=== PATIENT | male | born 1990 | race Caucasian/White ===

== ENCOUNTER 2017-10-06 16:58 | Emergency (ER) | payer SELFPAY ==
[~2017-10-06 16:58] MED LIST: AZIT-101 PO; CEP500 PO; HYDR-3250 PO; HYDR-3378 PO; IBUP800T37 PO; NEOPT TOP; OXYC-517 PO; PRED20TA6 PO; TRAM-627 PO; TRI05T TP
--- NOTE | 2017-10-06 17:07 | ER Report ---
History and Physical Time Seen By MD: 17:07 HPI/ROS CHIEF COMPLAINT: Suicidal HISTORY OF PRESENT ILLNESS: PT brought in by police for emergency penitentiary. Pt told his love ones that he was going to kill himself. Pt said he was going to obtain an gun and shoot himself. Pt called a friend to see if he could borrow his earlier today but friend said no. Pts girlfriend called police. Pt admitted to police that he was going to kill himself. On ed arrival pt states that he is depressed but that "i really was not going to shoot myself..I was just trying to get people upset". Pt was drinking alcohol today. Pt admits to a long hx of depression. Was hospitalized in [place] for suicide attempt 8 yrs ago. Pt did not tell me what he did at that time. Pt states he has been in [place] for 8 years and has no therapist and feels he is doing better. REVIEW OF SYSTEMS: Constitutional: No fever, no chills. Eyes: No discharge. ENT: No sore throat. Cardiovascular: No chest pain, no palpitations. Respiratory: No cough, no shortness of breath. Gastrointestinal: No abdominal pain, no vomiting. Genitourinary: No hematuria. Musculoskeletal: No back pain. Skin: No rashes. Neurological: No headache. Psych: + depressed, + suicidal with plan Allergies: Coded Allergies: No Known Allergies (Verified Allergy, Mild, 09/04/15) Home Meds No Active Prescriptions or Reported Meds Past Medical/Surgical History Pmhx: depression Pshx: plate in L knee and r hand Hx Smoking: Yes Smoking Status: Current: Every Day Smoker Exposure to Second Hand Smoke?: Yes Hx Substance Use Disorder: Yes (marijuania) Hx Alcohol Use: Yes Constitutional Vital Sign - Last 24 Hours 10/06/17 17:04 Temp 99.2 Pulse 104 Resp 20 B/P (MAP) 147/99 Pulse Ox 95 O2 Delivery Room Air Physical Exam General Appearance: The patient is alert, has no immediate need for airway protection and no signs of toxicity. Eyes: Pupils equal and round no pallor or injection, EOMI, subconjunctival hemorrhage left lateral eye ENT: no pharyngeal erythema or exudates, Mucous membranes are moist, TM are nl b/l, neg hemotympanums Respiratory: There are no retractions, lungs are clear to auscultation. Cardiovascular: Regular rate and rhythm. pulses are equal and symmetrical Gastrointestinal: Abdomen is soft and non tender, no masses, bowel sounds normal, no guarding, no rigidity or rebound Neurological: Cranial nerves II-XII grossly intact, no sensory or motor loss Skin: Warm and dry, no rashes, old yellow ecchymosis on left eye Musculoskeletal: Neck is supple non tender, no vertebral tenderness Extremities are nontender, non swollen and have full range of motion. DIFFERENTIAL DIAGNOSIS: After history and physical exam differential diagnosis was considered for depression, personalilty disorder Medical Decision Making Data Points Result Diagram: 10/06/17 1725 10/06/17 1725 Laboratory Hematology Test 10/06/17 00:00 10/06/17 17:21 10/06/17 17:25 Urine Opiates Screen Negative Urine Barbiturates Screen Negative Ur Tricyclic Antidepressants Screen Negative Urine Phencyclidine Screen Negative Urine Amphetamines Screen Negative Urine Benzodiazepines Screen Negative Urine Cocaine Screen Negative Urine Cannabinoids Screen Negative Urine Color Colorless Urine Clarity Clear Urine pH 6.0 pH (4.8-9.5) Urine Specific Irma 1.003 Urine Protein Negative mg/dL (NEGATIVE) Urine Glucose (UA) Negative mg/dL (NEGATIVE) Urine Ketones Negative mg/dL (NEGATIVE) Urine Blood Negative (NEGATIVE) Urine Nitrite Negative (NEGATIVE) Urine Bilirubin Negative (NEGATIVE) Urine Urobilinogen Negative mg/dL (0.2-1.9) Urine Leukocyte Esterase Negative (NEGATIVE) Urine RBC <1 /HPF (0-2/HPF) Urine WBC <1 /HPF (0-5/HPF) Urine Squamous Epithelial Cells None /LPF (</=FEW) Urine Bacteria Negative /HPF (NONE-FEW) Urine Mucus None /HPF (NONE-FEW) Red Blood Count 5.20 M/uL (4.00-5.60) Mean Corpuscular Volume 93.1 fL (80.0-96.0) Mean Corpuscular Hemoglobin 31.6 pg (26.0-33.0) Mean Corpuscular Hemoglobin Concent 34.0 g/dL (32.0-36.0) Red Cell Distribution Width 13.5 % (11.5-14.5) Mean Platelet Volume 6.8 fL (7.2-11.1) Neutrophils (%) (Auto) 63.4 % (39.4-72.5) Lymphocytes (%) (Auto) 26.5 % (17.6-49.6) Monocytes (%) (Auto) 9.0 % (4.1-12.4) Eosinophils (%) (Auto) 0.7 % (0.4-6.7) Basophils (%) (Auto) 0.4 % (0.3-1.4) Nucleated RBC Relative Count (auto) 0.0 /100WBC Neutrophils # (Auto) 5.3 K/uL (2.0-7.4) Lymphocytes # (Auto) 2.2 K/uL (1.3-3.6) Monocytes # (Auto) 0.8 K/uL (0.3-1.0) Eosinophils # (Auto) 0.1 K/uL (0.0-0.5) Basophils # (Auto) 0.0 K/uL (0.0-0.1) Nucleated RBC Absolute Count (auto) 0.00 K/uL Peripheral Blood Smear No Y/N Sodium Level 142 mmol/L (137-145) Potassium Level 3.9 mmol/L (3.5-5.0) Chloride Level 106 mmol/L (98-107) Carbon Dioxide Level 23 mmol/L (22-30) Blood Urea Nitrogen 15 mg/dl (9-21) Creatinine 0.90 mg/dl (0.66-1.25) Glomerular Filtration Rate Calc > 60.0 Random Glucose 108 mg/dl (75-110) Calcium Level 9.0 mg/dl (8.4-10.2) Magnesium Level 2.0 mg/dl (1.7-2.2) Total Bilirubin 0.4 mg/dl (0.2-1.3) Aspartate Amino Transf (AST/SGOT) 48 U/L (0-35) Alanine Aminotransferase (ALT/SGPT) 39 U/L (0-56) Alkaline Phosphatase 81 U/L (0-126) Total Protein 7.8 gm/dl (6.3-8.2) Albumin 4.6 g/dl (3.5-5.0) Salicylates Level < 10 mg/L Salicylate Last Dose Date unknown Acetaminophen Level < 10 ug/ml Serum Alcohol 267 mg/dl Chemistry Test 10/06/17 00:00 1/22/18 17:21 10/06/17 17:25 Urine Opiates Screen Negative Urine Barbiturates Screen Negative Ur Tricyclic Antidepressants Screen Negative Urine Phencyclidine Screen Negative Urine Amphetamines Screen Negative Urine Benzodiazepines Screen Negative Urine Cocaine Screen Negative Urine Cannabinoids Screen Negative Urine Color Colorless Urine Clarity Clear Urine pH 6.0 pH (4.8-9.5) Urine Specific Irma 1.003 Urine Protein Negative mg/dL (NEGATIVE) Urine Glucose (UA) Negative mg/dL (NEGATIVE) Urine Ketones Negative mg/dL (NEGATIVE) Urine Blood Negative (NEGATIVE) Urine Nitrite Negative (NEGATIVE) Urine Bilirubin Negative (NEGATIVE) Urine Urobilinogen Negative mg/dL (0.2-1.9) Urine Leukocyte Esterase Negative (NEGATIVE) Urine RBC <1 /HPF (0-2/HPF) Urine WBC <1 /HPF (0-5/HPF) Urine Squamous Epithelial Cells None /LPF (</=FEW) Urine Bacteria Negative /HPF (NONE-FEW) Urine Mucus None /HPF (NONE-FEW) White Blood Count 8.4 k/uL (4.5-11.0) Red Blood Count 5.20 M/uL (4.00-5.60) Hemoglobin 16.4 g/dL (14.0-18.0) Hematocrit 48.4 % (42.0-52.0) Mean Corpuscular Volume 93.1 fL (80.0-96.0) Mean Corpuscular Hemoglobin 31.6 pg (26.0-33.0) Mean Corpuscular Hemoglobin Concent 34.0 g/dL (32.0-36.0) Red Cell Distribution Width 13.5 % (11.5-14.5) Platelet Count 306 K/uL (150-450) Mean Platelet Volume 6.8 fL (7.2-11.1) Neutrophils (%) (Auto) 63.4 % (39.4-72.5) Lymphocytes (%) (Auto) 26.5 % (17.6-49.6) Monocytes (%) (Auto) 9.0 % (4.1-12.4) Eosinophils (%) (Auto) 0.7 % (0.4-6.7) Basophils (%) (Auto) 0.4 % (0.3-1.4) Nucleated RBC Relative Count (auto) 0.0 /100WBC Neutrophils # (Auto) 5.3 K/uL (2.0-7.4) Lymphocytes # (Auto) 2.2 K/uL (1.3-3.6) Monocytes # (Auto) 0.8 K/uL (0.3-1.0) Eosinophils # (Auto) 0.1 K/uL (0.0-0.5) Basophils # (Auto) 0.0 K/uL (0.0-0.1) Nucleated RBC Absolute Count (auto) 0.00 K/uL Peripheral Blood Smear No Y/N Glomerular Filtration Rate Calc > 60.0 Calcium Level 9.0 mg/dl (8.4-10.2) Magnesium Level 2.0 mg/dl (1.7-2.2) Total Bilirubin 0.4 mg/dl (0.2-1.3) Aspartate Amino Transf (AST/SGOT) 48 U/L (0-35) Alanine Aminotransferase (ALT/SGPT) 39 U/L (0-56) Alkaline Phosphatase 81 U/L (0-126) Total Protein 7.8 gm/dl (6.3-8.2) Albumin 4.6 g/dl (3.5-5.0) Salicylates Level < 10 mg/L Salicylate Last Dose Date unknown Acetaminophen Level < 10 ug/ml Serum Alcohol 267 mg/dl Toxicology Test 10/06/17 00:00 10/06/17 17:25 Urine Opiates Screen Negative Urine Barbiturates Screen Negative Ur Tricyclic Antidepressants Screen Negative Urine Phencyclidine Screen Negative Urine Amphetamines Screen Negative Urine Benzodiazepines Screen Negative Urine Cocaine Screen Negative Urine Cannabinoids Screen Negative Salicylates Level < 10 mg/L Salicylate Last Dose Date unknown Acetaminophen Level < 10 ug/ml Serum Alcohol 267 mg/dl Urinalysis Test 10/06/17 17:21 Urine Color Colorless Urine Clarity Clear Urine pH 6.0 pH (4.8-9.5) Urine Specific Irma 1.003 Urine Protein Negative mg/dL (NEGATIVE) Urine Glucose (UA) Negative mg/dL (NEGATIVE) Urine Ketones Negative mg/dL (NEGATIVE) Urine Blood Negative (NEGATIVE) Urine Nitrite Negative (NEGATIVE) Urine Bilirubin Negative (NEGATIVE) Urine Urobilinogen Negative mg/dL (0.2-1.9) Urine Leukocyte Esterase Negative (NEGATIVE) Urine RBC <1 /HPF (0-2/HPF) Urine WBC <1 /HPF (0-5/HPF) Urine Squamous Epithelial Cells None /LPF (</=FEW) Urine Bacteria Negative /HPF (NONE-FEW) Urine Mucus None /HPF (NONE-FEW) ED Course/Re-evaluation ED Course 10/06/2017 5:55:[address] pm Page out to Dr[address] Carter. 10/06/2017 6:07:[address] Carter who accepts. Decision to Disposition Date: Oct 06, 2017 Decision to Disposition Time: 18:07 Depart Departure Latest Vital Signs Vital Signs Date Time Temp Pulse Resp B/P (MAP) Pulse Ox O2 Delivery O2 Flow Rate FiO2 10/06/17 17:04 99.2 104 20 147/99 95 Room Air Impression: Primary Impression: Alcohol intoxication Additional Impression: Depression with suicidal ideation New Scripts No Active Prescriptions or Reported Meds ER - Title 25 MHE Evaluation Title 25 Evaluation Patient Detained By: Law Enforcement Referral Source: police Date Patient Detained: Oct 06, 2017 Time Patient Detained: 16:51 Date Long Term Expires: Oct 09, 2017 Time Long Term Expires: 16:51 Legal Status: Police Hold: Yes Legal Status: Residence: [facility] Resident Assessment Data Provided By: Patient, Law Enforcement HPI/ROS: Police were contacted by [employer] show states that pt had made suicidal statements to his mom, sibling and girlfriend. Pt said he was going to get a gun and shoot himself. PT called a friend to borrow his gun but was denied. Pt currently denies being suicidal but states "i said those things to get my family upset". Admit due to SI or Attempt: Yes Suicide Plan: Has Plan w/out Access Alcohol or Drugs Involved: Yes Mental Status Exam General Appearance: Tearful Affect: Sad Thought Process: Organized Thought Content: Suicidal Ideation Memory: Immediate Hallucinations: Denies Delusions: Denies Current Risk & History Current Dangerous Risk Assessm: Current Suicide Ideation Past Dangerous Risk Assessm: Other (8 yrs ago in [place]) Previous Suicide Attempt: Past - Low Lethality Previous Psychiatric Illness: Yes Previous Psychiatric Treatment: Yes Risk Assessment & Disposition Evaluated Risk Assessment: moderate Impression: Primary Impression: Alcohol intoxication Additional Impression: Depression with suicidal ideation Meets Mental Illness Req.: Yes Meets Dangerousness Req.: Yes Emergency Long Term to be: Upheld Date of Decision: Oct 06, 2017 Time of Decision: 17:58 Patient is Medically Stable at: Yes Disposition: [facility] Problem Qualifiers Primary Impression: Alcohol intoxication Complication of substance-induced condition: uncomplicated Qualified Codes: F10.920 - Alcohol use, unspecified with intoxication, uncomplicated KEANU CARMONA DO Oct 06, 2017 17:07
[2017-10-06 17:40] LABS: PLATELET COUNT, AUTOMATED 306 K/uL (150-450)
[2017-10-06] MEDS ORDERED: LORazepam 2 MG/ML VIAL ONE (18:19)
[2017-10-06 18:38] VITALS: BP 118/92
== END 2017-10-06 18:55 | disposition home or self-care (01) ==
LOC: ER 17:36
DX: F32.9 Major depressive disorder, single episode, unspecified (principal); R45.851 Suicidal ideations; F10.920 Alcohol use, unspecified with intoxication, uncomplicated
CPT/HCPCS: 36415; 80305; 80320; 80329; 81001; 83735; 84443; 85025; 99285; J2060; 82040; 82247; 82310; 82374; 82435; 82565; 82947; 84075; 84132; 84155; 84295; 84450; 84460; 84520

== ENCOUNTER 2017-10-06 18:34 | Inpatient (IN) | payer SELFPAY ==
[~2017-10-06] VITALS: Ht 167.6 cm; Wt 59.0 kg
[2017-10-06] MEDS ORDERED: NICOTINE INH SYSTEM 10 MG/INH INH PRN (19:00)
[2017-10-06] MEDS ORDERED: DIAZEPAM 10 MG TAB PO PRN (19:00)
[2017-10-06] MEDS ORDERED: MAG HYD/AL HYD/SIMETH 30ML UDC PO PRN ×2 (19:00→19:30)
[2017-10-06] MEDS ORDERED: NICOTINE CARTRIDGE 1 EA PO PRN (19:00)
[2017-10-06 21:05] VITALS: BP 110/80
[2017-10-06] MEDS: DIAZEPAM 10 MG TAB PO PRN (21:48)
[2017-10-07 03:53] VITALS: BP 117/67
[2017-10-07 08:20] VITALS: BP 102/72
[2017-10-07] MEDS: MULTIVITAMINS TAB PO SCH (08:21)
[2017-10-07 12:25] VITALS: BP 112/78
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
[2017-10-07] MEDS: DIAZEPAM 10 MG TAB PO PRN (19:13)
[2017-10-07 20:40] VITALS: BP 125/77
[2017-10-08 05:45] VITALS: BP 107/67
[2017-10-08] MEDS: MULTIVITAMINS TAB PO SCH (08:09)
[2017-10-08] MEDS ORDERED: MULT-1379 PO (10:08)
[2017-10-08] MEDS ORDERED: NIC10R INH (10:09)
[2017-10-08 10:10] VITALS: BP 110/78
[2017-10-08] MEDS ORDERED: NICOTROL CARTRIDGE PO (10:10)
[2017-10-08] MEDS ORDERED: OMEG-23 PO (10:10)
--- NOTE | 2017-10-09 17:09 | DISCHARGE SUMMARY ---
Patient was seen on the morning of October 08, 2017 at approximately 0900 hours. FINAL DIAGNOSES PER DSM-V Alcohol use disorder severe. Alcohol-induced mood disorder. Alcohol withdrawal, considered complete. Rule out persisting depressive disorder. Patient having supportive family relationships overall. REASON FOR ADMISSION Please see H and P for full details. This is a 27-year-old male who was emergency detained in a state of alcohol intoxication where patient had voiced suicidal ideation to use firearm. Patient was brought to the emergency room, admitted without incident. Patient remained frustrated throughout his stay, but overall polite and cooperative, and toward the end of his treatment did take an active role in discharge planning. Patient's alcohol withdrawal was considered complete and minimal in nature. Patient's mood quickly improved. Patient adamantly denying suicidal ideation. Cooperative with staff request to contact patient's family members, who were interviewed together with the patient. Patient having a limited ability to recognize the full extent of alcohol use disorder as underlying major concern in this patient's case. However, patient stating his intentions were to not drink any more, and patient also verbally agreeing to follow with [facility] program and outpatient treatment. Patient would continue to be evaluated on an outpatient basis concerning recommendations to go to residential rehab for alcohol use disorder. Patient denying suicidal thoughts, cooperative and discharged to home. PHYSICAL EXAMINATION GENERAL: Please see emergency room note. Notable for an intoxicated 27-year- old male in no acute medical distress. VITAL SIGNS: At the time of admission, temperature 99.2, pulse 104, respiratory rate 20, blood pressure 147/99, pulse oximetry 95 on room air. At the time of discharge from [facility] vital signs showed a temperature of 98.8, pulse 77, respiratory rate 16, blood pressure 110/78 and pulse oximetry 96 on room air. LABORATORY DATA At the time of admission CBC was unremarkable. CMP notable for just a minimal elevation in AST at 48, TSH was notably low at 0.38. Urinalysis unremarkable and toxicology screen notable for a serum alcohol level of 267, negative for other substances of abuse. MENTAL STATUS EXAMINATION AT THE TIME OF DISCHARGE GENERAL APPEARANCE, BEHAVIOR AND ATTITUDE: This is a cooperative, well- groomed 27-year-old male making good eye contact, interacting well with this provider, frustrated at times, but remaining polite and cooperative, interacting well overall with family members as well. No bizarre mannerisms or tics. No periods of tearfulness. SPEECH: Within normal limits, regular rate, rhythm volume and tone. MOOD: Described as frustrated at times, but overall improved. AFFECT: Minimal constrictions and appropriate. THOUGHT PROCESSES: Appear goal directed, logical. Patient agreeing to discharge to home, to abstain from alcohol and seek outpatient care. No loose associations or flight of ideas. THOUGHT CONTENT: Free of auditory or visual hallucinations, ideas of reference , thought broadcastings, delusions, obsessions, compulsions. Patient adamantly denying suicidal or homicidal ideation. SENSORIUM: Clear. COGNITION: Alert and oriented to person, place, time and situation. MEMORY: Immediate, recent and remote estimated intact. INTELLIGENCE: Average based on interview. INSIGHT AND JUDGMENT: Considered grossly intact in the absence of alcohol use or other illicit substances. RESULTS OF TESTING IMAGING: None. LABORATORY DATA: See above. CONSULTATIONS: None. TREATMENT Patient received medications, participated in individual and group therapy. HOSPITAL COURSE Patient's alcohol withdrawal was treated to completion with diazepam per [facility] protocol. It was considered minimal in nature. Patient continued to improve. Patient frustrated at times, stating he did not need to be on the unit. Patient agreeing to outpatient care. CONDITION OF PATIENT ON DISCHARGE Stable. Considered minimal risk to himself or others in the absence of alcohol or illicit substance use, and appropriate for ongoing outpatient care. DISPOSITION Patient discharged to home. He would follow up with outpatient therapy management and further evaluation of medication need. Patient was encouraged to consider residential treatment. He would abstain from all alcohol and illicit substances. He was given the crisis line should symptoms return. Patient was also encouraged to attend AA and obtain a sponsor. DISCHARGE MEDICATIONS Included a multivitamin with minerals daily. Patient to continue nicotine replacement and encouraged to stop smoking and was encouraged to take Pom[place]-3 fatty acids 1000 mg daily. Risks, benefits and alternatives of the above discharge plan were discussed. Informed consent was given to proceed with above discharge plan by patient and patient's family members. Crisis line was given should symptoms return. [facility]
== END 2017-10-08 13:55 | disposition home or self-care (01) | DRG 897 ==
LOC: BHS 18:34
PROVIDERS: ADMIT Psychiatry & Neurology Psychiatry; ATTEND Psychiatry & Neurology Psychiatry
DX: F10.24 Alcohol dependence with alcohol-induced mood disorder (principal); R45.851 Suicidal ideations; F10.230 Alcohol dependence with withdrawal, uncomplicated; F34.1 Dysthymic disorder; F17.210 Nicotine dependence, cigarettes, uncomplicated; L40.9 Psoriasis, unspecified; F12.90 Cannabis use, unspecified, uncomplicated; Y90.8 Blood alcohol level of 240 mg/100 ml or more; Z63.0 Problems in relationship with spouse or partner; Z91.5 Personal history of self-harm; Z81.8 Family history of other mental and behavioral disorders; Z81.1 Family history of alcohol abuse and dependence
CPT/HCPCS: 90853

== ENCOUNTER 2018-04-10 15:45 | Emergency (ER) | payer OTHER ==
[~2018-04-10 15:45] MED LIST changes: +MULT-1379 PO; +NIC10R INH; +NICOTROL CARTRIDGE PO; +OMEG-23 PO
--- NOTE | 2018-04-10 16:02 | ER Report ---
History and Physical Time Seen By MD: 15:57 Hx. of Stated Complaint: PATIENT HAS BEEN DRINKING ALL DAY AND HAS BEEN/ PT HAS SI HPI/ROS CHIEF COMPLAINT: Alcohol intoxication and suicidal ideation HISTORY OF PRESENT ILLNESS: This is a 28-year-old male who presents to the emergency department with his uncle for suicidal ideation. Patient states over the last couple days he's been having some depressive thoughts, doesn't feel as though he is contributing to his mother's well-being, he lives in her home, has been fighting with his girlfriend and "everyone else in his family", he states he drinks 1 pint of Michael Pat[place] a day or every other day along with approximately 12 beers. Patient states he had cut his left shoulder today, also told his uncle that he "thought about putting a bullet in my mouth". His uncle drove to the patient's house picked him up and brought him to the emergency department. Patient states he does not want pills, does not want to be admitted to the hospital. I did tell the patient that given his statements, his alcohol Intoxication that we may detain him. The patient became agitated. Patient has a strong odor of EtOH. While interviewing the patient he did tell me that he thought about "putting a bullet in his mouth". REVIEW OF SYSTEMS: Constitutional: No fever, no chills. Eyes: No discharge. ENT: No sore throat. Cardiovascular: No chest pain, no palpitations. Respiratory: No cough, no shortness of breath. Gastrointestinal: No abdominal pain, no vomiting. Genitourinary: No hematuria. Musculoskeletal: No back pain. Skin: As above. Neurological: No headache. Psychiatric: As above. Allergies: Coded Allergies: No Known Allergies (Verified Allergy, Mild, 09/04/15) Home Meds Discontinued Reported Medications [place]-3 Fatty Acids/Fish Oil (FISH OIL 1,000 MG SOFTGEL) 1 Each Capsule, 1 EACH PO DAILY, CAPSULE 10/08/17 [Nicotrol Cartridge] No Conflict Check, 1 EA PO PRN Y for NICOTINE REPLACEMENT 10/08/17 Nicotine (NICOTROL) 10 Mg/Inh Ctr, 10 MG INH PRN Y for NICOTINE REPLACEMENT 10/08/17 Multivits,Th W-Fe,Other Min (THERA-M) 1 Each Tablet, 1 EACH PO QDAY 10/08/17 Past Medical/Surgical History The patient has a past medical and surgical history of right hand repair with steel plate, right index finger repair, uses marijuana, knee injury, alcohol abuse, depression, anxiety, suicide attempt. Reviewed Nurses Notes: Yes Hx Smoking: Yes Smoking Status: Current: Every Day Smoker Exposure to Second Hand Smoke?: Yes Hx Substance Use Disorder: Yes (nashlázaro) Hx Alcohol Use: Yes Constitutional Vital Sign - Last 24 Hours 04/10/18 04/10/18 15:52 17:50 Temp 98.6 98.7 Pulse 116 98 Resp 18 18 B/P (MAP) 145/100 134/89 (104) Pulse Ox 90 93 O2 Delivery Room Air Room Air Physical Exam General Appearance: The patient is alert, has no immediate need for airway protection and no signs of toxicity. Eyes: Pupils equal and round no pallor or injection. ENT, Mouth: Mucous membranes are moist. Respiratory: There are no retractions, lungs are clear to auscultation. Cardiovascular: Regular rate and rhythm, no murmurs, clicks or rubs. Gastrointestinal: Abdomen is soft and non tender, no masses, bowel sounds normal. Neurological: Alert and oriented 4. Moving all external E's. Following all commands. No focal neuro deficits. Skin: Warm and dry, no rashes. Eczematic type of rash on both hands and forearms. superficial abrasion and superficial laceration to left deltoid, non reparable. Musculoskeletal: Neck is supple non tender. Extremities are nontender, nonswollen and have full range of motion. DIFFERENTIAL DIAGNOSIS: After history and physical exam differential diagnosis was considered for alcohol intoxication, suicidal ideation, depression, anxiety. Medical Decision Making Data Points Result Diagram: 04/10/18 1626 04/10/18 1626 Laboratory Hematology Test 04/10/18 15:52 04/10/18 16:26 Urine Color Straw Urine Clarity Clear Urine pH 5.0 pH (4.8-9.5) Urine Specific [place] 1.003 Urine Protein Negative mg/dL (NEGATIVE) Urine Glucose (UA) Negative mg/dL (NEGATIVE) Urine Ketones Negative mg/dL (NEGATIVE) Urine Blood Negative (NEGATIVE) Urine Nitrite Negative (NEGATIVE) Urine Bilirubin Negative (NEGATIVE) Urine Urobilinogen Negative mg/dL (0.2-1.9) Urine Leukocyte Esterase Negative (NEGATIVE) Urine RBC None /HPF (0-2/HPF) Urine WBC <1 /HPF (0-5/HPF) Urine Squamous Epithelial Cells None /LPF (</=FEW) Urine Bacteria Negative /HPF (NONE-FEW) Urine Hyaline Casts Few /LPF (NONE-FEW) Urine Mucus None /HPF (NONE-FEW) Urine Opiates Screen Negative Urine Barbiturates Screen Negative Ur Tricyclic Antidepressants Screen Negative Urine Phencyclidine Screen Negative Urine Amphetamines Screen Negative Urine Benzodiazepines Screen Negative Urine Cocaine Screen Negative Urine Cannabinoids Screen Negative Red Blood Count 5.25 M/uL (4.00-5.60) Mean Corpuscular Volume 93.2 fL (80.0-96.0) Mean Corpuscular Hemoglobin 33.0 pg (26.0-33.0) Mean Corpuscular Hemoglobin Concent 35.4 g/dL (32.0-36.0) Red Cell Distribution Width 13.6 % (11.5-14.5) Mean Platelet Volume 6.9 fL (7.2-11.1) Neutrophils (%) (Auto) 63.5 % (39.4-72.5) Lymphocytes (%) (Auto) 27.6 % (17.6-49.6) Monocytes (%) (Auto) 6.3 % (4.1-12.4) Eosinophils (%) (Auto) 2.3 % (0.4-6.7) Basophils (%) (Auto) 0.3 % (0.3-1.4) Nucleated RBC Relative Count (auto) 0.0 /100WBC Neutrophils # (Auto) 6.1 K/uL (2.0-7.4) Lymphocytes # (Auto) 2.6 K/uL (1.3-3.6) Monocytes # (Auto) 0.6 K/uL (0.3-1.0) Eosinophils # (Auto) 0.2 K/uL (0.0-0.5) Basophils # (Auto) 0.0 K/uL (0.0-0.1) Nucleated RBC Absolute Count (auto) 0.00 K/uL Sodium Level 145 mmol/L (137-145) Potassium Level 4.4 mmol/L (3.5-5.0) Chloride Level 106 mmol/L (98-107) Carbon Dioxide Level 22 mmol/L (22-30) Blood Urea Nitrogen 12 mg/dl (9-21) Creatinine 0.80 mg/dl (0.66-1.25) Glomerular Filtration Rate Calc > 60.0 Random Glucose 68 mg/dl (75-110) Calcium Level 9.4 mg/dl (8.4-10.2) Magnesium Level 2.2 mg/dl (1.7-2.2) Total Bilirubin 0.2 mg/dl (0.2-1.3) Aspartate Amino Transf (AST/SGOT) 55 U/L (0-35) Alanine Aminotransferase (ALT/SGPT) 56 U/L (0-56) Alkaline Phosphatase 88 U/L (0-126) Total Protein 7.7 g/dl (6.3-8.2) Albumin 5.0 g/dl (3.5-5.0) Salicylates Level < 10 mg/L Salicylate Last Dose Date unk Acetaminophen Level < 10 ug/ml Serum Alcohol 308 mg/dl Chemistry Test 04/10/18 15:52 04/10/18 16:26 Urine Color Straw Urine Clarity Clear Urine pH 5.0 pH (4.8-9.5) Urine Specific [place] 1.003 Urine Protein Negative mg/dL (NEGATIVE) Urine Glucose (UA) Negative mg/dL (NEGATIVE) Urine Ketones Negative mg/dL (NEGATIVE) Urine Blood Negative (NEGATIVE) Urine Nitrite Negative (NEGATIVE) Urine Bilirubin Negative (NEGATIVE) Urine Urobilinogen Negative mg/dL (0.2-1.9) Urine Leukocyte Esterase Negative (NEGATIVE) Urine RBC None /HPF (0-2/HPF) Urine WBC <1 /HPF (0-5/HPF) Urine Squamous Epithelial Cells None /LPF (</=FEW) Urine Bacteria Negative /HPF (NONE-FEW) Urine Hyaline Casts Few /LPF (NONE-FEW) Urine Mucus None /HPF (NONE-FEW) Urine Opiates Screen Negative Urine Barbiturates Screen Negative Ur Tricyclic Antidepressants Screen Negative Urine Phencyclidine Screen Negative Urine Amphetamines Screen Negative Urine Benzodiazepines Screen Negative Urine Cocaine Screen Negative Urine Cannabinoids Screen Negative White Blood Count 9.6 k/uL (4.5-11.0) Red Blood Count 5.25 M/uL (4.00-5.60) Hemoglobin 17.3 g/dL (14.0-18.0) Hematocrit 49.0 % (42.0-52.0) Mean Corpuscular Volume 93.2 fL (80.0-96.0) Mean Corpuscular Hemoglobin 33.0 pg (26.0-33.0) Mean Corpuscular Hemoglobin Concent 35.4 g/dL (32.0-36.0) Red Cell Distribution Width 13.6 % (11.5-14.5) Platelet Count 362 K/uL (150-450) Mean Platelet Volume 6.9 fL (7.2-11.1) Neutrophils (%) (Auto) 63.5 % (39.4-72.5) Lymphocytes (%) (Auto) 27.6 % (17.6-49.6) Monocytes (%) (Auto) 6.3 % (4.1-12.4) Eosinophils (%) (Auto) 2.3 % (0.4-6.7) Basophils (%) (Auto) 0.3 % (0.3-1.4) Nucleated RBC Relative Count (auto) 0.0 /100WBC Neutrophils # (Auto) 6.1 K/uL (2.0-7.4) Lymphocytes # (Auto) 2.6 K/uL (1.3-3.6) Monocytes # (Auto) 0.6 K/uL (0.3-1.0) Eosinophils # (Auto) 0.2 K/uL (0.0-0.5) Basophils # (Auto) 0.0 K/uL (0.0-0.1) Nucleated RBC Absolute Count (auto) 0.00 K/uL Glomerular Filtration Rate Calc > 60.0 Calcium Level 9.4 mg/dl (8.4-10.2) Magnesium Level 2.2 mg/dl (1.7-2.2) Total Bilirubin 0.2 mg/dl (0.2-1.3) Aspartate Amino Transf (AST/SGOT) 55 U/L (0-35) Alanine Aminotransferase (ALT/SGPT) 56 U/L (0-56) Alkaline Phosphatase 88 U/L (0-126) Total Protein 7.7 g/dl (6.3-8.2) Albumin 5.0 g/dl (3.5-5.0) Salicylates Level < 10 mg/L Salicylate Last Dose Date unk Acetaminophen Level < 10 ug/ml Serum Alcohol 308 mg/dl Toxicology Test 04/10/18 15:52 7/27/18 16:26 Urine Opiates Screen Negative Urine Barbiturates Screen Negative Ur Tricyclic Antidepressants Screen Negative Urine Phencyclidine Screen Negative Urine Amphetamines Screen Negative Urine Benzodiazepines Screen Negative Urine Cocaine Screen Negative Urine Cannabinoids Screen Negative Salicylates Level < 10 mg/L Salicylate Last Dose Date unk Acetaminophen Level < 10 ug/ml Serum Alcohol 308 mg/dl Urinalysis Test 04/10/18 15:52 Urine Color Straw Urine Clarity Clear Urine pH 5.0 pH (4.8-9.5) Urine Specific [place] 1.003 Urine Protein Negative mg/dL (NEGATIVE) Urine Glucose (UA) Negative mg/dL (NEGATIVE) Urine Ketones Negative mg/dL (NEGATIVE) Urine Blood Negative (NEGATIVE) Urine Nitrite Negative (NEGATIVE) Urine Bilirubin Negative (NEGATIVE) Urine Urobilinogen Negative mg/dL (0.2-1.9) Urine Leukocyte Esterase Negative (NEGATIVE) Urine RBC None /HPF (0-2/HPF) Urine WBC <1 /HPF (0-5/HPF) Urine Squamous Epithelial Cells None /LPF (</=FEW) Urine Bacteria Negative /HPF (NONE-FEW) Urine Hyaline Casts Few /LPF (NONE-FEW) Urine Mucus None /HPF (NONE-FEW) ED Course/Re-evaluation ED Course The patient was admitted to room. History physical obtained. Differential diagnoses were considered. Lab studies were obtained. Lab studies unremarkable other than alcohol level of 308. Given the patient's admission suicidal ideation , and cutting the left deltoid I did tell patient that we are unable to get him go home for his safety. The patient became very agitated and upset as noted below. The patient was medicated with Benadryl and Haldol. The patient did finally change into scrubs while the Textbroker Tech was down evaluating the patient. I did review the case with Dr. Smiley who accepted the patient into her services. The patient was wheeled to the unit with security. 04/10/2018 5:00:11 pm I did go back in to evaluate the patient, he states he was wanting to leave, I did tell the patient that I cannot let him leave when he is talking about suicide via bullet in his mouth and cutting. Patient states "I am going to leave and get the fuck out of my way". I splinted the patient again that I cannot let him do that, I did review the patient has rights the patient was detained at 1655. Patient became very agitated Matic clenched fist and was threatening me at the bedside, I did order Benadryl and Haldol to be given IM. He did not want anything done with the wounds on his arm. 04/10/2018 5:05:54 pm a code yellow was called. Staff members at bedside, the IM injections were given without incident. Patient was willing to take the IM injections without being restrained. 04/10/2018 5:12:27 pm on the patient is requesting to go out and smoke, did tell him he is unable to do this, he was given the option of a nicotine patch, he declined. 04/10/2018 5:36:32 pm I did speak with Dr. Smiley regarding the patients case, she was going to contact the unit and call back. 04/10/2018 5:45:[address] Smiley has accepted the patient into her services, before the patient is transported we will give him another 5mg haldol and 1mg ativan, as he is not willing to change into scrubs at this time. 04/10/2018 5:51:35 pm the patient is now cooperative, changed into the scrubs without incident. No additional medications were needed. Decision to Disposition Date: Apr 10, 2018 Decision to Disposition Time: 17:52 Depart Departure Latest Vital Signs Vital Signs Date Time Temp Pulse Resp B/P (MAP) Pulse Ox O2 Delivery O2 Flow Rate FiO2 04/10/18 17:50 98.7 98 18 134/89 (104) 93 Room Air Impression: Primary Impression: Alcohol intoxication Additional Impression: Depression with suicidal ideation Condition: Condition Unchanged Disposition: [facility]FER TO [facility] New Scripts No Active Prescriptions or Reported Meds Problem Qualifiers Primary Impression: Alcohol intoxication Complication of substance-induced condition: with unspecified complication Qualified Codes: F10.929 - Alcohol use, unspecified with intoxication, unspecified JEFFREY AMAYA MARKET[employer] FINANCE MANAGER-BC Apr 10, 2018 16:02
[2018-04-10 16:34] LABS: PLATELET COUNT, AUTOMATED 362 K/uL (150-450)
[2018-04-10] MEDS ORDERED: HALOPERIDOL LACT 5 MG/ML VIAL IM ONE ×2 (17:00→17:45)
[2018-04-10] MEDS ORDERED: diphenhydrAMINE 50 MG/ML VIAL IM ONE (17:00)
[2018-04-10] MEDS ORDERED: LORazepam 2 MG/ML VIAL IM ONE (17:45)
[2018-04-10 17:50] VITALS: BP 134/89
[2018-04-11] MEDS ORDERED: MULT-859 PO (10:13)
[2018-04-11] MEDS ORDERED: FOLI-68 PO (10:13)
[2018-04-11] MEDS ORDERED: THIA100T6 PO (10:13)
== END 2018-04-10 18:00 ==
LOC: ER 15:53
DX: F32.9 Major depressive disorder, single episode, unspecified (principal); F10.920 Alcohol use, unspecified with intoxication, uncomplicated; R45.851 Suicidal ideations
CPT/HCPCS: 80305; 80320; 80329; 81001; 83735; 84443; 85025; 96372; 99284; J1200; J1630; 82040; 82247; 82310; 82374; 82435; 82565; 82947; 84075; 84132; 84155; 84295; 84450; 84460; 84520

== ENCOUNTER 2018-04-10 17:49 | Inpatient (IN) | payer OTHER ==
[2018-04-10] MEDS ORDERED: MAG HYD/AL HYD/SIMETH 30ML UDC PO PRN (18:05)
[2018-04-10] MEDS ORDERED: LORazepam 2 MG/ML VIAL IM PRN (18:10)
[2018-04-10] MEDS ORDERED: OLANZapine 5 MG TAB PO PRN (18:10)
[2018-04-10] MEDS ORDERED: OLANZapine 10 MG VIAL IM ONLY PRN (18:10)
[2018-04-10] MEDS ORDERED: diphenhydrAMINE 50 MG/ML VIAL IM PRN (18:10)
[2018-04-10] MEDS ORDERED: WATER STERILE 10 ML VIAL IM ONLY PRN (18:10)
[2018-04-10] MEDS ORDERED: DIAZEPAM 10 MG TAB PO PRN (18:20)
[2018-04-10] MEDS ORDERED: MELATONIN 3 MG TAB PO SCH (21:00)
[2018-04-10 22:16] VITALS: BP 110/76
[2018-04-11 03:15] VITALS: BP 134/76
[2018-04-11 06:20] VITALS: BP 127/75
[2018-04-11 08:50] VITALS: BP 136/74
[2018-04-11] MEDS ORDERED: FOLIC ACID 1 MG TAB PO SCH (09:00)
[2018-04-11] MEDS ORDERED: MULTIVITAMINS PO SCH (09:00)
[2018-04-11] MEDS ORDERED: THIAMINE HCL 100 MG TAB PO SCH (09:00)
[2018-04-11] MEDS ORDERED: FOLI-68 PO (10:13)
[2018-04-11] MEDS ORDERED: MULT-859 PO (10:13)
[2018-04-11] MEDS ORDERED: THIA100T6 PO (10:13)
--- NOTE | 2018-04-11 15:43 | DISCHARGE SUMMARY ---
This will serve as both the History and Physical and the Discharge Summary for this patient who was hospitalized for less than 24 hours. DATE OF ADMISSION: April 10, 2018 DATE OF DISCHARGE: April 11, 2018 The patient was interviewed for this dictation on April 11, 2018, at 8:30 in the morning. CHIEF COMPLAINT "I was having a bad day and said some things I shouldn't have said. It was alcohol. I am not suicidal." HISTORY OF PRESENT ILLNESS This is the fourth Behavioral Health admission for this 28-year-old male who came in to the Emergency Room and was detained by the ER doctor because the patient was intoxicated with a blood alcohol of 308 and because the patient made suicidal statements. The patient's prior three admission to [facility] have been under similar circumstances. Today, the patient states that he is not suicidal and that he would have never made those statements if he had not been intoxicated. He says that he had a bad day yesterday after a fight with a girl. He drank more than usual and says he called his elderly great uncle who brought him to the hospital. In the Emergency Room, it was found that he had self-harmed by cutting on his left shoulder. The patient has a long history of self-harm by cutting. In addition, in the ER the patient said that he would put a gun in his mouth and shoot himself. The patient was agitated and aggressive in the Emergency Room, and the emergency room physician told the patient that he would not be able to let him go because of his blood alcohol level along with his suicidal statements. A CODE YELLOW was called in the Emergency Room, and the patient was medicated with Haldol 5 mg IM and Benadryl 50 mg IM. The patient did accept these IM medications willingly and did not have to be held down. The patient calmed down and was admitted to [facility]. He slept throughout the night and was cooperative here on the unit. This morning when we interviewed him, he was emphatic stating that he was not suicidal. He reported that he does not have any access to guns. 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 The patient acknowledged fighting with a girlfriend on the day of admission and says that he drank too much. He acknowledges drinking 2 six-packs plus a pint of whiskey per day. He has had a long history of alcohol abuse. We did call the patient' s sister, Malika, for collateral information. She acknowledged that this has happened to him several times before, not only three times prior at [facility], but also once in the past in [place]. She says that she understands that he needs treatment for alcohol abuse, but that if he is not willing to go for treatment, then we cannot force it upon him. She acknowledged that he does not have access to guns to her knowledge. PAST MENTAL HEALTH HISTORY As above, this is his fourth [facility] admission, plus he has had one prior admission in [place] under similar circumstances when he presented with a high blood alcohol level and suicidal ideation. The patient has a history of a diagnosis of borderline personality disorder and has a long history of self-harm by cutting. The patient has been in outpatient treatment in the past at [facility]. The patient says that he was most recently seeing a therapist named Obdulia, but has not been compliant with outpatient treatment for a while now. FAMILY PSYCHIATRIC HISTORY There is an extensive family history of alcoholism including in the patient's mother and another sister. PAST MEDICAL HISTORY Psoriasis. SOCIAL HISTORY The patient was born and raised in [place]. His parents were at the time of his . They are now . He moved to [place] about seven years ago. 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 He lives at home with his mother. LEGAL HISTORY The patient has had one DUI in the past. VICTIM ISSUES The patient denies any history of physical or sexual abuse. SUBSTANCE ABUSE HISTORY The patient reports a long history of alcohol abuse. In the past, he drank up to 18 beers and half a pint of whiskey per day. He currently reports 12 beers and one pint of whiskey per day. He is a cigarette smoker. He rarely uses cannabis and denies any other substance abuse. PHYSICAL EXAMINATION Please see the emergency room physician's report. VITAL SIGNS: Temperature 98.4, pulse of 67, respiratory rate 16, blood pressure is 136/74, pulse ox is 93% on room air. LABORATORY DATA CBC is entirely within normal limits. Chemistry panel is entirely within normal limits other than a mildly elevated AST at 55. ALT is normal at 56. TSH is pending. Urine drug screen is negative. Serum alcohol was 308. Urinalysis is within normal limits. MENTAL STATUS EXAMINATION The patient was casually groomed, dressed in scrubs. He was in Unit C and sat up in his bed to speak with us. Eye contact was good. He displayed normal psychomotor activity. Speech was normal in rate, tone, and volume. Mood was, "I'm fine. I just want to go home." Affect was overall irritable, but he did display full range. Thought process was logical and goal directed. Thought content was negative for suicidal ideation, homicidal ideation, auditory hallucinations, visual hallucinations, and delusions. He was alert and fully oriented to person, place, time and situation. Memory was intact for immediate , recent, and remote recall. Intelligence was average based on interview. Insight and judgment are fair. IMPRESSION 1. Alcohol use disorder, severe. 2. Alcohol intoxication. 3. Alcohol-induced depressive disorder. In my medical opinion, this patient is not mentally ill and is not a danger to himself or others. I have lifted the emergency half-way effective at 9:45 a.m. on April 11, 2018. PLAN The patient was admitted to [facility]. He was maintained in Unit C because he had needed IM medication in the Emergency Room. The patient was maintained on escape precautions. He was also monitored with the CIWA protocol throughout his brief hospital stay, and he never did score or require any Valium for detox. On the morning of our interview, the patient had sobered up and was denying any suicidal ideation. His sister did confirm details of his history, and she did confirm he has no access to guns. The patient was counseled regarding substance abuse, and we offered to help him arrange further treatment here for rehab or outpatient rehab. He did state that he would follow up at [facility]. We described the intensive outpatient program there, and he did state that he would be willing to sign up there again, but the patient adamantly did not want to stay in the hospital and was very concerned about getting to his job on Friday morning. Therefore, the patient was discharged with outpatient followup information given for [facility]. This will serve as both the History and Physical and the Discharge Summary for this patient who was hospitalized for less than 24 hours. SITA
== END 2018-04-11 10:45 | disposition home or self-care (01) | DRG 897 ==
LOC: BHS 17:49
PROVIDERS: ADMIT Psychiatry & Neurology Psychiatry; ATTEND Psychiatry & Neurology Psychiatry
DX: F10.24 Alcohol dependence with alcohol-induced mood disorder (principal); F17.210 Nicotine dependence, cigarettes, uncomplicated; L40.9 Psoriasis, unspecified; Y90.8 Blood alcohol level of 240 mg/100 ml or more; Z81.1 Family history of alcohol abuse and dependence; Z91.5 Personal history of self-harm

== ENCOUNTER 2018-04-15 11:51 | Emergency (ER) | payer SELFPAY ==
[~2018-04-15 11:51] MED LIST changes: +FOLI-68 PO; +MULT-859 PO; +THIA100T6 PO
[2018-04-15 11:55] VITALS: BP 133/94
[2018-04-15] MEDS ORDERED: EPINEPHrine 0.3 MG SYR IM ONLY ONE (12:05)
[2018-04-15] MEDS ORDERED: predniSONE 20 MG TAB PO ONE (12:05)
[2018-04-15] MEDS ORDERED: diphenhydrAMINE 25 MG CAP PO ONE (12:05)
--- NOTE | 2018-04-15 12:14 | ER Report ---
History and Physical Time Seen By MD: 12:00 Hx. of Stated Complaint: pt has had a rash since he was 13yr old. he has seen a behavioral pediatrician about it and has been using aloe lotion over the areas of concern. increased rash began about 1 week ago. facial swelling started last night. HPI/ROS CHIEF COMPLAINT: Allergic reaction HISTORY OF PRESENT ILLNESS: 28-year-old male comes emergency Department with a K complaint of an allergic reaction patient states she's had this for 15+ years comes and goes and diagnosed with post psoriasis and eczema patient denies any opportunity for acute exposure over has noticed some increased facial swelling patient status happens to him quite often no airway compromise no chest pain shortness of breath additional complaints noted has never had rest testing performed and is not seen a doctor for over 10 years even with this problem REVIEW OF SYSTEMS: Respiratory: No cough, no dyspnea. Cardiovascular: No chest pain, no palpitations. Gastrointestinal: No vomiting, no abdominal pain. Musculoskeletal: No back pain. Remainder of the 14 system rev: Yes Allergies: Coded Allergies: No Known Allergies (Verified Allergy, Mild, 09/04/15) Home Meds Reported Medications Multivits,Ca,Minerals/Iron/Fa (THERA-M TABLET) 1 Each Tablet, 1 EACH PO DAILY 04/11/18 Folic Acid (FOLIC ACID) 1 Mg Tablet, 1 MG PO QDAY, TAB 04/11/18 Thiamine HCl (B-1) 100 Mg Tablet, 1 TAB PO DAILY 04/11/18 Discontinued Reported Medications [place]-3 Fatty Acids/Fish Oil (FISH OIL 1,000 MG SOFTGEL) 1 Each Capsule, 1 EACH PO DAILY, CAPSULE 10/08/17 [Nicotrol Cartridge] No Conflict Check, 1 EA PO PRN Y for NICOTINE REPLACEMENT 10/08/17 Nicotine (NICOTROL) 10 Mg/Inh Ctr, 10 MG INH PRN Y for NICOTINE REPLACEMENT 10/08/17 Multivits,Th W-Fe,Other Min (THERA-M) 1 Each Tablet, 1 EACH PO QDAY 10/08/17 Reviewed Nurses Notes: Yes Old Medical Records Reviewed: Yes Hx Smoking: Yes Smoking Status: Current: Every Day Smoker Exposure to Second Hand Smoke?: Yes Hx Substance Use Disorder: Yes (tameka) Hx Alcohol Use: Yes Constitutional Vital Sign - Last 24 Hours 04/15/18 11:55 Temp 98.6 Pulse 91 Resp 16 B/P (MAP) 133/94 Pulse Ox 98 Physical Exam General Appearance: [The patient is alert, has no immediate need for airway protection and no current signs of toxicity.] [ ] Eyes: Periorbital swelling and edema consistent with acute allergic reaction left greater than right otherwise normal exam Respiratory: Chest is non tender, lungs are clear to auscultation. Cardiac: regular rate and rhythm [ ] Gastrointestinal: Abdomen is soft and non tender, no masses, bowel sounds normal. Musculoskeletal: Neck: Neck is supple and non tender. Extremities have full range of motion and are non tender. Skin: Peripheral rashes in the creases of the flex flexor surface facial swelling consistent with an allergic reaction [ ] DIFFERENTIAL DIAGNOSIS: After history and physical exam differential diagnosis was considered for [acute on chronic hyperreactive dermatitis acute allergic reaction Medical Decision Making ED Course/Re-evaluation ED Course ED clinical course 28-year-old male presented with both chronic atopic type changes as well as an acute exacerbation of his underlying hyperreactive hypersensitivity allergic reaction this was treated with epinephrine prednisone and Benadryl he feels significantly better we'll prescribe him an EpiPen for his own use at home primary care follow-up with eventual Rast testing by dermatology Decision to Disposition Date: Apr 15, 2018 Decision to Disposition Time: 12:56 Depart Departure Latest Vital Signs Vital Signs Date Time Temp Pulse Resp B/P (MAP) Pulse Ox O2 Delivery O2 Flow Rate FiO2 04/15/18 11:55 98.6 91 16 133/94 98 Impression: Primary Impression: Allergic reaction Condition: Improved Disposition: HOME OR SELF-CARE Referrals: JEAN DOYLE MD 5 Days New Scripts Epinephrine (EPIPEN 2-KAITY) 0.3 Mg/0.3 Ml Pen.injctr 0.3 MG IM PRN, #1 Prov: SABRINA LOTT MD 04/15/18 Patient Instructions: General Allergic Reaction (ED) SABRINA LOTT MD Apr 15, 2018 12:14
[2018-04-15] MEDS ORDERED: EPIN0.3P15 IM (12:58)
== END 2018-04-15 13:15 | disposition home or self-care (01) ==
LOC: ER 11:56
DX: T78.40XA Allergy, unspecified, initial encounter (principal); R21 Rash and other nonspecific skin eruption
CPT/HCPCS: 96372; 99283; J0171; J7512; Q0163

== ENCOUNTER 2018-08-17 01:08 | Emergency (ER) | payer OTHER ==
--- NOTE | 2018-08-17 01:11 | ER Report ---
History and Physical Time Seen By MD: 01:09 (ELICEO RAMIREZ DO) HPI/ROS CHIEF COMPLAINT: Suicide attempt HISTORY OF PRESENT ILLNESS: 28-year-old male with a long history of mental health problems and alcohol abuse problems. Patient's had numerous previous admits to [facility] the last was March 2018 and previous to that was September 2017. Patient admits to methamphetamine abuse for several weeks. Tonight. Patient performed a deep self-inflicted laceration to his left upper arm through the extensor muscle bundle. Patient thinks his tetanus shots greater than 10 years. Patient admits alcohol use. Patient became quite aggressive after EMS and police arrived. Fortunately EMS was able to de-escalate the situation before police had to restrain in handcuff the patient. REVIEW OF SYSTEMS: Respiratory: No cough, no dyspnea. Cardiovascular: No chest pain, no palpitations. Gastrointestinal: No vomiting, no abdominal pain. Musculoskeletal: No back pain. (ELICEO RAMIREZ DO) Allergies: Coded Allergies: No Known Allergies (Verified Allergy, Mild, 09/04/15) Home Meds Reported Medications [Nicotrol Cartridge] No Conflict Check, 1 EA PO PRN PRN for NICOTINE REPLACEMENT 08/21/18 Nicotine (NICOTROL) 10 Mg/Inh Ctr, 10 MG INH Q2H PRN for NICOTINE REPLACEMENT 08/21/18 Multivits,Th W-Fe,Other Min (THERA-M) 1 Each Tablet, 1 EACH PO QDAY 08/21/18 Discontinued Reported Medications Multivits,Ca,Minerals/Iron/Fa (THERA-M TABLET) 1 Each Tablet, 1 EACH PO DAILY 04/11/18 Folic Acid (FOLIC ACID) 1 Mg Tablet, 1 MG PO QDAY, TAB 04/11/18 Thiamine HCl (B-1) 100 Mg Tablet, 1 TAB PO DAILY 04/11/18 Discontinued Scripts Epinephrine (EPIPEN 2-KAITY) 0.3 Mg/0.3 Ml Pen.injctr, 0.3 MG IM PRN, #1 Prov:SABRINA LOTT MD 04/15/18 Past Medical/Surgical History Alcohol and emotional problems, numerous previous [facility] admissions (ELICEO RAMIREZ DO) Reviewed Nurses Notes: Yes Old Medical Records Reviewed: Yes (ELICEO RAMIREZ DO) Hx Smoking: Yes Smoking Status: Current: Every Day Smoker Exposure to Second Hand Smoke?: Yes Hx Substance Use Disorder: Yes (tameka) Hx Alcohol Use: Yes (ELICEO RAMIREZ DO) Constitutional Vital Sign - Last 24 Hours 08/17/18 08/17/18 08/17/18 08/17/18 01:08 01:10 01:30 01:38 Temp 97.7 Pulse 91 87 Resp 17 B/P (MAP) 112/81 (91) 112/81 98/67 (77) Pulse Ox 92 97 O2 Delivery Room Air 08/17/18 08/17/18 08/17/18 08/17/18 02:00 02:05 02:18 02:30 Pulse 83 B/P (MAP) 107/62 (77) 106/66 (79) Pulse Ox 91 O2 Flow Rate 1.0 08/17/18 08/17/18 08/17/18 08/17/18 03:00 03:05 03:30 03:35 Pulse 85 84 B/P (MAP) 97/63 (74) 106/65 (79) Pulse Ox 97 97 08/17/18 08/17/18 08/17/18 08/17/18 04:00 04:05 04:05 04:30 Pulse 74 74 B/P (MAP) 103/60 (74) 92/56 (68) Pulse Ox 100 08/17/18 08/17/18 08/17/18 08/17/18 05:00 05:05 05:20 05:30 Pulse ? B/P (MAP) 88/52 (64) 99/63 (75) 08/17/18 08/17/18 08/17/18 08/17/18 05:35 05:50 06:00 06:05 Pulse ? B/P (MAP) 98/64 (75) 08/17/18 08/17/18 08/17/18 08/17/18 06:20 06:30 06:35 06:50 Pulse ? B/P (MAP) 74/47 (56) 08/17/18 07:00 B/P (MAP) 83/57 (66) (ARASH MCNAIR MD) Physical Exam General Appearance: The patient is alert, has no immediate need for airway protection and no current signs of toxicity. I will signs stable, afebrile, not tachycardic, pulse ox normal HEENT: Pupils equal and round no injection. Oropharynx without redness or exuda te, mucous. Membranes are moist Respiratory: Chest is non tender, lungs are clear to auscultation. Cardiac: regular rate and rhythm Gastrointestinal: Abdomen is soft and non tender, no masses, bowel sounds normal. Musculoskeletal: Neck: Neck is supple and non tender. Extremities have full range of motion and are non tender. As a large transverse laceration to the proximal extensor muscle bundle of the left upper forearm. Distal neurovascular function appears grossly intact. Bleeding is controlled. Skin: No rashes or lesions. DIFFERENTIAL DIAGNOSIS: After history and physical exam differential diagnosis was considered for depression including functional and major depression, situational depression, medication side effect, drugs and alcohol abuse. Self- inflicted Left arm laceration (ELICEO RAMIREZ DO) Medical Decision Making Data Points Laboratory Hematology Test 08/17/18 02:44 Red Blood Count 4.70 M/uL (4.00-5.60) Mean Corpuscular Volume 94.8 fL (80.0-96.0) Mean Corpuscular Hemoglobin 31.7 pg (26.0-33.0) Mean Corpuscular Hemoglobin Concent 33.4 g/dL (32.0-36.0) Red Cell Distribution Width 13.2 % (11.5-14.5) Mean Platelet Volume 7.1 fL (7.2-11.1) Neutrophils (%) (Auto) 60.3 % (39.4-72.5) Lymphocytes (%) (Auto) 28.7 % (17.6-49.6) Monocytes (%) (Auto) 8.8 % (4.1-12.4) Eosinophils (%) (Auto) 1.6 % (0.4-6.7) Basophils (%) (Auto) 0.6 % (0.3-1.4) Nucleated RBC Relative Count (auto) 0.0 /100WBC Neutrophils # (Auto) 3.1 K/uL (2.0-7.4) Lymphocytes # (Auto) 1.5 K/uL (1.3-3.6) Monocytes # (Auto) 0.4 K/uL (0.3-1.0) Eosinophils # (Auto) 0.1 K/uL (0.0-0.5) Basophils # (Auto) 0.0 K/uL (0.0-0.1) Nucleated RBC Absolute Count (auto) 0.00 K/uL Sodium Level 139 mmol/L (137-145) Potassium Level 4.0 mmol/L (3.5-5.0) Chloride Level 107 mmol/L (98-107) Carbon Dioxide Level 20 mmol/L (22-30) Blood Urea Nitrogen 11 mg/dl (9-21) Creatinine 0.90 mg/dl (0.66-1.25) Glomerular Filtration Rate Calc > 60.0 Random Glucose 86 mg/dl (75-110) Calcium Level 8.8 mg/dl (8.4-10.2) Magnesium Level 2.1 mg/dl (1.7-2.2) Total Bilirubin 0.2 mg/dl (0.2-1.3) Aspartate Amino Transf (AST/SGOT) 32 U/L (0-35) Alanine Aminotransferase (ALT/SGPT) 37 U/L (0-56) Alkaline Phosphatase 81 U/L (0-126) Total Protein 7.0 g/dl (6.3-8.2) Albumin 4.2 g/dl (3.5-5.0) Salicylates Level < 10 mg/L Salicylate Last Dose Date unk Acetaminophen Level < 10 ug/ml Serum Alcohol 238 mg/dl Chemistry Test 08/17/18 02:44 White Blood Count 5.1 k/uL (4.5-11.0) Red Blood Count 4.70 M/uL (4.00-5.60) Hemoglobin 14.9 g/dL (14.0-18.0) Hematocrit 44.6 % (42.0-52.0) Mean Corpuscular Volume 94.8 fL (80.0-96.0) Mean Corpuscular Hemoglobin 31.7 pg (26.0-33.0) Mean Corpuscular Hemoglobin Concent 33.4 g/dL (32.0-36.0) Red Cell Distribution Width 13.2 % (11.5-14.5) Platelet Count 294 K/uL (150-450) Mean Platelet Volume 7.1 fL (7.2-11.1) Neutrophils (%) (Auto) 60.3 % (39.4-72.5) Lymphocytes (%) (Auto) 28.7 % (17.6-49.6) Monocytes (%) (Auto) 8.8 % (4.1-12.4) Eosinophils (%) (Auto) 1.6 % (0.4-6.7) Basophils (%) (Auto) 0.6 % (0.3-1.4) Nucleated RBC Relative Count (auto) 0.0 /100WBC Neutrophils # (Auto) 3.1 K/uL (2.0-7.4) Lymphocytes # (Auto) 1.5 K/uL (1.3-3.6) Monocytes # (Auto) 0.4 K/uL (0.3-1.0) Eosinophils # (Auto) 0.1 K/uL (0.0-0.5) Basophils # (Auto) 0.0 K/uL (0.0-0.1) Nucleated RBC Absolute Count (auto) 0.00 K/uL Glomerular Filtration Rate Calc > 60.0 Calcium Level 8.8 mg/dl (8.4-10.2) Magnesium Level 2.1 mg/dl (1.7-2.2) Total Bilirubin 0.2 mg/dl (0.2-1.3) Aspartate Amino Transf (AST/SGOT) 32 U/L (0-35) Alanine Aminotransferase (ALT/SGPT) 37 U/L (0-56) Alkaline Phosphatase 81 U/L (0-126) Total Protein 7.0 g/dl (6.3-8.2) Albumin 4.2 g/dl (3.5-5.0) Salicylates Level < 10 mg/L Salicylate Last Dose Date unk Acetaminophen Level < 10 ug/ml Serum Alcohol 238 mg/dl Toxicology Test 08/17/18 02:44 Salicylates Level < 10 mg/L Salicylate Last Dose Date unk Acetaminophen Level < 10 ug/ml Serum Alcohol 238 mg/dl (ARASH MCNAIR MD) ED Course/Re-evaluation ED Course Patient was admitted to an examination room. H&P was done. The differential diagnoses was considered. On clinical examination, patient appears mildly agitated restless. He admits to methamphetamine abuse. Patient states he last used 2 hours prior to arrival. Patient became upset and self-inflicted a laceration across the left upper arm muscle bundle. It 8 cm crossed. A half c entimeter in muscle bundle. Patient's tetanus status was updated. Diagnostic studies were ordered. Patient's laceration was repaired as noted below. Patient was placed on emergency senior care by police officers. Procedure: Laceration repair. Verbal consent was obtained from the patient. The 8.0 cm laceration on the transversely across the upper left arm through the extensor muscle bundle was anesthetized in the usual fashion. The wound was scrubbed, draped and explored to its base with a gloved finger.. There was laceration into the muscle bundle No tendon injury was identified. The wound was repaired with 4-0 Vicryl 6 was used to approximate the muscle bundle sheath. The skin was approximated with 4- 0 Prolene running suture 13 stitches. The wound repair was complex. The procedure was performed by myself. Decision to Disposition Date: Aug 17, 2018 Decision to Disposition Time: 01:38 (ELICEO RAMIREZ DO) Decision to Disposition Date: Aug 17, 2018 Decision to Disposition Time: 08:07 (ARASH MCNAIR MD) Depart Departure Latest Vital Signs Vital Signs Date Time Temp Pulse Resp B/P (MAP) Pulse Ox O2 Delivery O2 Flow Rate FiO2 08/17/18 07:00 83/57 (66) 08/17/18 06:50 ??? 08/17/18 04:05 100 08/17/18 02:18 1.0 08/17/18 01:10 97.7 17 Room Air (ARASH MCNAIR MD) Impression: Primary Impression: Depression with suicidal ideation Additional Impressions: Alcohol intoxication Injury, self-inflicted Polysubstance abuse Condition: Improved Disposition: [facility] TO SENIOR LIVING/CORRECTIONAL F Problem Qualifiers Additional Impressions: Alcohol intoxication Complication of substance-induced condition: uncomplicated Qualified Codes: F10.920 - Alcohol use, unspecified with intoxication, uncomplicated ELICEO RAMIREZ DO Aug 17, 2018 01:11 ARASH MCNAIR MD Aug 17, 2018 08:06
[2018-08-17] MEDS: WATER STERILE 10 ML VIAL IM ONLY ONE ×2 (01:44→08:05)
[2018-08-17] MEDS: LORazepam 2 MG/ML VIAL IVP ONE (01:44)
[2018-08-17] MEDS: OLANZapine 10 MG VIAL IM ONLY ONE ×2 (01:44→08:05)
[2018-08-17] MEDS: DIPHTH/TETANUS/ACEL. PERTUSSIS IM ONLY ONE (01:44)
[2018-08-17] MEDS: diphenhydrAMINE 50 MG/ML VIAL IVP ONE (01:44)
[2018-08-17] MEDS: ONDANSETRON 4 MG ODT TABDP SL ONE (01:55)
[2018-08-17 02:55] LABS: PLATELET COUNT, AUTOMATED 294 K/uL (150-450)
[2018-08-17 07:00] VITALS: BP 83/57
--- NOTE | 2018-08-17 16:59 | BHS - Psychiatric Evaluation ---
ER - Title 25 MHE Evaluation Title 25 Evaluation Patient Detained By: Law Enforcement Referral Source: Professional: Law Enforcement Date Patient Detained: Aug 17, 2018 Time Patient Detained: :15 Date Nursing Home Expires: Aug 20, 2018 Time Nursing Home Expires: Legal Status: Police Hold: Yes Legal Status: Residence: [facility] Resident, State Resident Assessment Data Provided By: Patient, Other Source HPI/ROS: From ER Dr, Dr. Jamie Larsen, "28-year-old male with a long history of mental health problems and alcohol abuse problems. Patient's had numerous previous admits to [facility] the last was March 2018 and previous to that was September 2017. Patient admits to methamphetamine abuse for several weeks. Tonight. Patient performed a deep self-inflicted laceration to his left upper arm through the extensor muscle bundle. Patient thinks his tetanus shots greater than 10 years. Patient admits alcohol use. Patient became quite aggressive after EMS and police arrived. Fortunately EMS was able to de-escalate the situation before police had to restrain in handcuff the patient." Admit due to SI or Attempt: Yes Suicide Plan: No Plan (Denies being suicidal, but cut his arm with a pocket knife requiring sutures.) Current Suicide Plan Patient denies a suicidal plan, and says he just wants to go home. Also indicates with grimaces and motor difficulties that the self injury to his arm is rated a "6" on a scale of 1-10, with 10 being the worst pain of his life. Seems unable to understand the seriousness of self injury and he seems to be embarrassed about hurting himself. he says dismissive, "I don't even remember doing this. No one cuts their arm here if they want to ." Alcohol or Drugs Involved: Yes (Patient achknowledges methamphetamine use and alcohol.) Current Intoxication Info: Patient smells like alcohol and is very sleepy. says he may be "coming down" from methamphetamine use. Is Patient Info Reliable: No Is Collateral Info Reliable: Yes ( and police report) Current Home Psych Meds: Denies at this time. Mental Status Exam General Appearance: Unkept Speech: Slurred, Other (Mumbles some, seems embarrassed to be alexandr "[place] [employer]." ) Mood: Dysthmic/Depressed Affect: Sad Thought Process: Goal Directed (Wants to go home) Thought Content: Suicidal Ideation (denies) Sensorium: Clear Cognition: Alert & Oriented-Person, Alert & Oriented-Place, Alert & Oriented- Time Memory: Immediate, Recent Insight Judgment: Poor Sleep: Hypersomnia Hallucinations: Denies Delusions: Denies Current Risk & History Current Dangerous Risk Assessm: Current Suicide Ideation (Denies being suicidal, but cut his arm with a pocket knife requiring sutures.) Past Dangerous Risk Assessm: Suicide Ideation-last 6mo Prior Alcohol/Drug Abuse Reports past drug and alcohol use. Previous Suicide Attempt: Past - Low Lethality (patient has been detained before for danger to self) Previous Psychiatric Illness: Yes Previous Diagnosis/Treatment: Depression with Suicidal ideation Mood disorder is complicated and worsened by polysubstance use. Previous Psychiatric Treatment: Yes (Patient has had a recent [facility] hospitalization. He was detained at that time as well.) Risk Assessment & Disposition Evaluated Risk Assessment: Risk is high. Patient acknowledges methamphetamine use and alcohol, causing him to have poor judgement and need stabilization. He denies being suicidal, but cut his arm with a pocket knife requiring sutures. Has some work and financial instability, but some employment with [employer]. Does not see a therapist. Impression: Primary Impression: Depression with suicidal ideation Additional Impressions: Alcohol intoxication Injury, self-inflicted Polysubstance abuse Meets Mental Illness Req.: Yes Meets Dangerousness Req.: Yes Emergency Nursing Home to be: Upheld Decision Comment: Denies being suicidal, but cut his arm with a pocket knife requiring sutures. Date of Decision: Aug 17, 2018 Time of Decision: 16:56 Patient is Medically Stable at: Yes Disposition: Transfer (Tranferring brom skilled nursing to [facility]. This clinicn interviewed him at the skilled nursing.) Problem Qualifiers Additional Impressions: Alcohol intoxication Complication of substance-induced condition: uncomplicated Qualified Codes: F10.920 - Alcohol use, unspecified with intoxication, uncomplicated NASIMA MOTA [facility] Aug 17, 2018 16:59
== END 2018-08-17 08:06 ==
LOC: ER 01:35
DX: F32.9 Major depressive disorder, single episode, unspecified (principal); T14.91XA Suicide attempt, initial encounter; S41.112A Laceration without foreign body of left upper arm, initial encounter; F10.920 Alcohol use, unspecified with intoxication, uncomplicated; Y90.7 Blood alcohol level of 200-239 mg/100 ml; F19.10 Other psychoactive substance abuse, uncomplicated
CPT/HCPCS: 12034; 36415; 80320; 80329; 83735; 84443; 85025; 90471; 90715; 96372; 96374; 96375; 99284; A4216; J1200; J2060; J3490; S0119; 82040; 82247; 82310; 82374; 82435; 82565; 82947; 84075; 84132; 84155; 84295; 84450; 84460; 84520

== ENCOUNTER 2018-08-17 17:45 | Inpatient (IN) | payer OTHER ==
[~2018-08-17] VITALS: Ht 167.6 cm; Wt 61.2 kg
[2018-08-17 17:55] VITALS: BP 100/61
[2018-08-17] MEDS ORDERED: DIAZEPAM 10 MG TAB PO PRN ×2 (18:20)
--- NOTE | 2018-08-17 18:37 | EKG ---
FACILITY: [facility] PATIENT NAME: ROMELIA MONTERROSO : [id number] MR: [id number] V: [id number] EXAM DATE: ORDERING PHYSICIAN: ARCELIA TRIVEDI TECHNOLOGIST: JESUS Ceballos Reason : BHS Blood Pressure : / mmHG Vent. Rate : 071 BPM Atrial Rate : 071 BPM P-R Int : 148 ms QRS Dur : 100 ms QT Int : 378 ms P-R-T Axes : 047 029 064 degrees QTc Int : 410 ms Normal sinus rhythm Normal ECG No previous ECGs available Confirmed by THUY SILVESTRE ([id number]) on 08/18/2018 6:31:05 AM Referred By: [facility] Confirmed By:THUY SILVESTRE
[2018-08-17] MEDS ORDERED: MAG HYD/AL HYD/SIMETH 30ML UDC PO PRN (18:55)
[2018-08-17] MEDS ORDERED: NICOTINE INH SYSTEM 10 MG/INH INH PRN (19:05)
[2018-08-17] MEDS ORDERED: NICOTINE CARTRIDGE 1 EA PO PRN (19:05)
[2018-08-18 06:15] VITALS: BP 118/79
[2018-08-18] MEDS: FOLIC ACID 1 MG TAB PO SCH (08:29)
[2018-08-18] MEDS: MULTIVITAMINS PO SCH (08:29)
[2018-08-18] MEDS: THIAMINE HCL 100 MG TAB PO SCH (08:30)
[2018-08-18 10:45] VITALS: BP 110/66
[2018-08-18 14:30] VITALS: BP 108/74
--- NOTE | 2018-08-18 15:32 | General Surgery Consultation ---
History of Present Illness Requesting Physician Arcelia Caicedo MD Reason for Consult Evaluate motor deficit in left forearm s/p self-inflicted laceration closed in ED on 08/17/2018 Chief Complaint Dorsal Forearm Laceration with Motor Deficit History of Present Illness Mr. Cao is a 28yo male who was seen in the ED on 08/17/2018 after a self- inflicted knife wound to his left dorsal forearm. He has a history of beh avioral health issues with self-inflicted injury in addition to drug and alcohol abuse and was admitted to behavioral health from the ED. The wound was evaluated in the ED by the ED physician and explored under local anesthesia. It was described as involving the dorsal muscle complex to a depth of 1/2 cm. The fascia was closed as part of the repair. Today, the patient was found to have no extensor function and I was asked to assist in the evaluation for management. History Problems: (1) Psoriasis Status: Chronic (2) Polysubstance abuse Status: Chronic (3) Depression with suicidal ideation Status: Chronic Home Meds Discontinued Reported Medications Multivits,Ca,Minerals/Iron/Fa (THERA-M TABLET) 1 Each Tablet, 1 EACH PO DAILY 04/11/18 Folic Acid (FOLIC ACID) 1 Mg Tablet, 1 MG PO QDAY, TAB 04/11/18 Thiamine HCl (B-1) 100 Mg Tablet, 1 TAB PO DAILY 04/11/18 Discontinued Scripts Epinephrine (EPIPEN 2-KAITY) 0.3 Mg/0.3 Ml Pen.injctr, 0.3 MG IM PRN, #1 Prov:SABRINA LOTT MD 04/15/18 Allergies: Coded Allergies: No Known Allergies (Verified Allergy, Mild, 09/04/15) Family History: Drug abuse FATHER MOTHER BROTHER OR SISTER FHx: alcoholism BROTHER OR SISTER BROTHER OR SISTER Suicide attempt BROTHER OR SISTER Review of Systems All Systems Reviewed/Normal: Yes Psychiatric: Depression Exam Vital Signs Vital Signs Date Time Temp Pulse Resp B/P (MAP) Pulse Ox O2 Delivery O2 Flow Rate FiO2 08/18/18 14:30 98.4 78 16 108/74 (85) 92 Room Air General Appearance: No Acute Distress, Other (Awakens to voice, cooperative and responds to questions appropriately) Neuro: Other (Sleepy but appropriate) Extremities: Other (Left Arm - warm, 2+ radial pulse, 8cm suture laceration transverse on dorsal aspect left forearm, no erythema; Sensation is intact in all areas, flexor motor movements are all intact 4/5 limited by discomfort; extensor: wrist 1/5, finger 2/5, abduction/adduction 4/5) Psych: Other (see separate psychological evaluation for details) Assessment and Plan Problems: (1) Open wound of forearm, complicated *Optional Permanent Comment*: Left Dorsal Last Edited By: Arcelia George MD on Aug 18, 2018 15:12 Onset Date: ~ 08/17/2018 Status: Acute Assessment & Plan: I have reviewed the records in addition to personally examining the patient. His level of function is significantly less than expected for the extent of injury described. I am suspicious that this is affected by his psychological state though I am unable to fully evaluate the extent of his injury since the wound is already repaired. At a minimum, I recommend an OT consult as he may require a splint in order to avoid flexion contractures and assistance with rehabilitation of his extensor strength and ROM. I also recommend that he have an evaluation by a hand surgeon. A call has been placed to the office of Dr. Mathew to coordinate a consult/recommendation. (2) Injury, self-inflicted Status: Acute Time Spent: < 30 min Venous Thromboembolism VTE Risk Physician Assess for VTE Risk: Yes Patient's VTE Risk: Low Antithrombotics Is Pt On Any Antithrombotics?: No Problem Qualifiers (1) Open wound of forearm, complicated: Encounter type: initial encounter Laterality: left Qualified Codes: S51.802A - Unspecified open wound of left forearm, initial encounter ARCELIA GEORGE MD Aug 18, 2018 15:12
--- NOTE | 2018-08-18 15:46 | General Surgery Progress Note ---
Physical Exam Vital Signs Date Time Temp Pulse Resp B/P (MAP) Pulse Ox O2 Delivery O2 Flow Rate FiO2 08/18/18 14:30 98.4 78 16 108/74 (85) 92 Room Air Assessment and Plan Problems: (1) Open wound of forearm, complicated *Optional Permanent Comment*: Left Dorsal Last Edited By: Arcelia Abrams MD on Aug 18, 2018 15:12 Onset Date: ~ 08/17/2018 Status: Acute Assessment & Plan: I have reviewed the records in addition to personally examining the patient. His level of function is significantly less than expected for the extent of injury described. I am suspicious that this is affected by his psychological state though I am unable to fully evaluate the extent of his injury since the wound is already repaired. At a minimum, I recommend an OT consult as he may require a splint in order to avoid flexion contractures and assistance with rehabilitation of his extensor strength and ROM. I also recommend that he have an evaluation by a hand surgeon. A call has been placed to the office of Dr. Mathew to coordinate a consult/recommendation. Spoke with Dr. Mathew. Recommends wrist cock-up splint with fingers free. He will evaluate the patient on Friday at [facility], or at his office if discharged, for potential need for reexploration. (2) Injury, self-inflicted Status: Acute Time Spent: < 30 min Problem Qualifiers (1) Open wound of forearm, complicated: Encounter type: initial encounter Laterality: left Qualified Codes: S51.802A - Unspecified open wound of left forearm, initial encounter ARCELIA ABRAMS MD Aug 18, 2018 15:46
[2018-08-18 19:13] VITALS: BP 105/55
[2018-08-19 05:50] VITALS: BP 109/74
[2018-08-19] MEDS: FOLIC ACID 1 MG TAB PO SCH (08:06)
[2018-08-19] MEDS: MULTIVITAMINS PO SCH (08:06)
[2018-08-19] MEDS: THIAMINE HCL 100 MG TAB PO SCH (08:06)
--- NOTE | 2018-08-19 09:22 | BHS Progress Note ---
[facility] - Subjective Progress Notes Subjective Patient continues to be lethargic, and likely related to the absence of methamphetamine. Spoke with family regarding the need for patient to abstain from alcohol and illicit substances. Patient himself remains resistant to care in general. Residential treatment would be certainly recommended, but patient has significant extensor muscle damage of left forearm, that will be in need of further evaluation and follow up. Surgical consult is in place, and current condition is being followed. Will go forward with hearing to persuade patient to abstain from substances, and avoid continued self injury. Patient stating "I just want to go the fuck home". Suicidal Ideation: None Homicidal Ideation: None [facility] - Objective Physical Exam Vital Signs Vital Signs Date Time Temp Pulse Resp B/P (MAP) Pulse Ox O2 Delivery O2 Flow Rate FiO2 08/19/18 05:50 98.8 71 15 109/74 (86) 93 Room Air Vital Signs Date Time Temp Pulse Resp B/P (MAP) Pulse Ox O2 Delivery O2 Flow Rate FiO2 08/19/18 05:50 98.8 71 15 109/74 (86) 93 Room Air Muscle Strength and Tone: WNL Gait and Station: Steady [facility] Medications Reviewed: Side Effects, Benefits of Medication, Risks Allergies Reviewed: Yes Mental Status Exam General Appearance: Casual; No Well Groomed, No Good Eye Contact, No Cooperative, No Polite, No Good Interaction; Unkept, Psychomotor Retardation; No Bizarre Mannerisms, No Tics Speech: Spontaneous, Normal Volume, Inappropriate Mood: Dysthmic/Depressed (appearing so, but denies any problems) Affect: Sad, Neutral, Withdrawn Thought Process: Goal Directed (I just want to go the fuck home); No Loose Associations, No Flight of Ideas Thought Content: No Suicidal Ideation (denies), No Homicidal Ideation, No Delusions, No Auditory Halllucinations, No Visual Hallucinations, No Thought Broadcasting, No Ideas of Reference, No Obsessions, No Compulsions Sensorium: Clear Cognition: Alert & Oriented-Person, Alert & Oriented-Place, Alert & Oriented- Time, [id number]-Dnvflryr-Tkeznpamk (partially) Memory: Immediate, Recent, Remote Intelligence: Average Insight Judgment: Poor (seemingly little understanding of the detrimental effects of continued alcohol and drug use in his life. 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 surgery is following 2. continue to monitor alcohol withdrawal 3. schedule hearing. Problem Qualifiers (1) Alcohol withdrawal: Complication of substance-induced condition: uncomplicated Qualified Codes: F10.230 - Alcohol dependence with withdrawal, uncomplicated (2) Open wound of forearm, complicated: Encounter type: initial encounter Laterality: left Qualified Codes: S51.802A - Unspecified open wound of left forearm, initial encounter ARCELIA CAICEDO MD Aug 19, 2018 09:22
[2018-08-19 10:00] VITALS: BP 102/82
--- NOTE | 2018-08-19 13:20 | SCHAAF H&P ---
DATE OF ADMISSION: August 17, 2018 ATTENDING PHYSICIAN Gab Caicedo MD Patient was seen at approximately 1200 hours on August 18, 2018 for a note concerning this dictation. PRESENTING PROBLEM, CHIEF COMPLAINT Suicidal thoughts and the presence of alcohol intoxication, self-harming behaviors with deep laceration to extensor muscle bundle on left forearm. HISTORY OF PRESENT ILLNESS This is a mildly uncooperative 28-year-old male who was notably last on the unit in 03/2018 under similar circumstances. Before that, patient was on the Behavioral Health Unit here at [facility] in 09/2017. Patient suffers from alcohol use disorder and substance abuse mood disorder. Patient admits to using methamphetamine in addition to continued use of alcohol. Patient reportingly drinking 18-pack of beer to a case of beer a day with additional pint of hard liquor at times. Patient reports using meth "very little" and not on a daily basis, more like once every two weeks. Patient notably in the emergency room acting out and causing disruption to the point that patient was briefly transferred to detention awaiting placement on [facility], which had no beds available at the time. Patient was returned from detention to be admitted to [facility] and was cooperative, apparently in a crash from methamphetamine use. Patient sleeping. Patient reports "there is nothing wrong with me" and that he cut his arm "wanting to get a rise out of her", referring to his girlfriend. Patient reports specific stressors in that he was fighting with his girlfriend. The patient does not seem to recognize the ongoing battles with alcoholism or methamphetamine use. Patient reports he is currently not working. This is an additional stressor as he lost his job due to drinking. Patient is known to live at home with his mother, who reportedly consumes excessive alcohol as well. Patient is notably not following up with any outpatient therapy and treatment that was recommended in 03/2018 when patient discharged. He denies any history of suicide attempts. Patient reports "I threaten it a lot and then usually just cut myself." Patient is not currently on any medications and patient again denying any symptoms of psychiatric concern. MENTAL HEALTH HISTORY This is believed to be the fifth [facility] admission to Behavioral Health. Patient additionally was apparently hospitalized in [place] at one time under similar circumstances when he again presented with a high blood alcohol level and suicidal ideation. Patient apparently has a history of diagnosis of borderline personality and has a longstanding history of self harm by cutting. Patient has been in outpatient treatment in the past at [facility], is not going now, and is not on any outpatient medications. FAMILY PSYCHIATRIC HISTORY Extensive family history of alcoholism including the patient's own mother and another sister, and patient's sister reporting that multiple members in the family suffer from alcohol and drug abuse. PAST MEDICAL HISTORY Significant for psoriasis. SOCIAL HISTORY The patient was born and raised in [place]. His parents were at the time of his . They are now . He moved to [place] about seven years ago. Patient has done various jobs, is not currently working after losing his job due to alcoholism. Patient continues to live at home with his mother in the [place] area. LEGAL HISTORY Patient has reported a history of one DUI in the past on previous admission. Patient denies a history of physical or sexual abuse growing up. SUBSTANCE ABUSE HISTORY Patient reports a long history of alcohol dependence and uses cigarettes. Patient reporting on previous admission rarely using cannabis, and patient currently admitting to infrequent methamphetamine use. PHYSICAL EXAMINATION Please see emergency room note notable for a 28-year-old male in no acute medical distress with the exception of deep laceration to the extensor bundle muscle group resulting in limited extension of the hand at the wrist. We will continue to evaluate this. We will call surgical consult as well to continue to evaluate. Patient disruptive in the emergency room requiring brief transfer to detention for holding until Behavioral Health bed could be available. Vital signs at the time of admission: Temperature 99.6, pulse 87, respiratory rate 14, blood pressure 110/76 and pulse oximetry 90% on room air. LABORATORY DATA CBC unremarkable. CMP unremarkable as well with a TSH of 0.53. Toxicology screen notable for serum alcohol level of 238 with urine drug screen not obtained and urinalysis not obtained. MENTAL STATUS EXAMINATION GENERAL APPEARANCE, BEHAVIOR AND ATTITUDE: This is a psychomotor retarded 28-year-old male making poor eye contact and mildly uncooperative. Patient not seemingly interested in getting any treatment on Behavioral Health Unit. Patient adamantly denying any suicidal ideations again stating that he cut his arm and did not realize he had cut that deeply trying to "get a rise out of her", referring to girlfriend. Patient somewhat disheveled-appearing. SPEECH: Quiet, and poverty of speech noted. MOOD: Described as fine. AFFECT: Constricted and mood-incongruent. THOUGHT PROCESSES: No gross loose associations or flight of ideas could be detected. Goal-directed in that patient wanting to discharge to home. THOUGHT CONTENT: Free of auditory or visual hallucinations, ideas of reference, thought broadcastings, delusions, obsessions or compulsions. The patient is adamantly denying suicidal or homicidal ideation regarding any self harm that patient engaged in. SENSORIUM: Clear. COGNITION: Alert and oriented to person, place, time and mostly to situation. MEMORY: Immediate, recent and remote estimated intact. INTELLIGENCE: Average to below, based on this interview and previous admissions. INSIGHT AND JUDGMENT: Currently limited due to ongoing alcohol use disorder, methamphetamine use, and probable underlying personality disorder traits versus full disorder. ASSESSMENT This is a 28-year-old male, emergency detained. Patient has a history of frequent admissions for suicidal ideation and concurrent drug or alcohol intoxication. It is notable that patient's alcohol withdrawal in the unit in the past has been minimal when compared to the patient's verbalization of how much he drinks, and also lab values including MCV, MCH, cell count, platelet counts, and hepatic function do not seem consistent with patient's reported level of drinking. However, we will continue to evaluate at this time. Patient, due to previous admissions of severity of cutting and frequency of admissions and overall social decline, at this time will go forward with a ten- day hearing in this mildly uncooperative patient to get further assessment and strive for beneficial treatment. DIAGNOSES Per DSM 5: 1. Alcohol-induced mood disorder. 2. Stimulant-induced mood disorder. 3. Methamphetamine. 4. Alcohol withdrawal. 5. Alcohol use disorder, severe. 6. Stimulant use disorder, moderate to severe methamphetamine. 7. Social stressors. PLAN 1. Admit to the unit. 2. Necessary precautions will be implemented. 3. The patient will participate in individual and group therapy. 4. Medications will be administered and titrated accordingly. We will use [facility] protocol with diazepam for alcohol withdrawal. 5. Collateral information to be obtained as necessary. 6. Estimated length of stay unknown at this time. We will proceed with ten-day extension hearing. [facility]
[2018-08-19 14:00] VITALS: BP 112/80
[2018-08-19 19:40] VITALS: BP 100/70
[2018-08-20 05:59] VITALS: BP 111/74
[2018-08-20] MEDS: THIAMINE HCL 100 MG TAB PO SCH (08:09)
[2018-08-20] MEDS: MULTIVITAMINS PO SCH (08:09)
[2018-08-20] MEDS: FOLIC ACID 1 MG TAB PO SCH (08:09)
[2018-08-20 08:20] VITALS: BP 120/68
[2018-08-20] MEDS ORDERED: IBUPROFEN 600 MG TAB PO PRN (08:35)
--- NOTE | 2018-08-20 11:39 | BHS Progress Note ---
BHS - Subjective Progress Notes Subjective Patient remains mildly resistant to care, stating he "does not need to be here". Patient agrees to go to [facility], and follow up locally with his injury to his Left arm. Patient would not be a candidate at this time for residential treatment, due to necessity of treatment locally of arm injury. Will have hearing in AM to decide if patient remains in hospital based on repeated admissions with suicidal thoughts and alcohol intoxication. No other concerns. No clinically relevant alcohol withdrawal noted. Suicidal Ideation: None Homicidal Ideation: None S - Objective Physical Exam Vital Signs Vital Signs Date Time Temp Pulse Resp B/P (MAP) Pulse Ox O2 Delivery O2 Flow Rate FiO2 08/20/18 05:59 99.6 68 15 111/74 (86) 92 Room Air Hematology Test 08/19/18 12:15 Urine Color Straw Urine Clarity Clear Urine pH 7.0 pH (4.8-9.5) Urine Specific [place] 1.004 Urine Protein Negative mg/dL (NEGATIVE) Urine Glucose (UA) Negative mg/dL (NEGATIVE) Urine Ketones Negative mg/dL (NEGATIVE) Urine Blood Negative (NEGATIVE) Urine Nitrite Negative (NEGATIVE) Urine Bilirubin Negative (NEGATIVE) Urine Urobilinogen Negative mg/dL (0.2-1.9) Urine Leukocyte Esterase Negative (NEGATIVE) Urine RBC 1 /HPF (0-2/HPF) Urine WBC 1 /HPF (0-5/HPF) Urine Squamous Epithelial Cells None /LPF (</=FEW) Urine Bacteria Negative /HPF (NONE-FEW) Urine Mucus None /HPF (NONE-FEW) Urine Opiates Screen Negative Urine Barbiturates Screen Negative Ur Tricyclic Antidepressants Screen Negative Urine Phencyclidine Screen Negative Urine Amphetamines Screen Negative Urine Benzodiazepines Screen Negative Urine Cocaine Screen Negative Urine Cannabinoids Screen Negative Chemistry Test 08/19/18 12:15 Urine Color Straw Urine Clarity Clear Urine pH 7.0 pH (4.8-9.5) Urine Specific [place] 1.004 Urine Protein Negative mg/dL (NEGATIVE) Urine Glucose (UA) Negative mg/dL (NEGATIVE) Urine Ketones Negative mg/dL (NEGATIVE) Urine Blood Negative (NEGATIVE) Urine Nitrite Negative (NEGATIVE) Urine Bilirubin Negative (NEGATIVE) Urine Urobilinogen Negative mg/dL (0.2-1.9) Urine Leukocyte Esterase Negative (NEGATIVE) Urine RBC 1 /HPF (0-2/HPF) Urine WBC 1 /HPF (0-5/HPF) Urine Squamous Epithelial Cells None /LPF (</=FEW) Urine Bacteria Negative /HPF (NONE-FEW) Urine Mucus None /HPF (NONE-FEW) Urine Opiates Screen Negative Urine Barbiturates Screen Negative Ur Tricyclic Antidepressants Screen Negative Urine Phencyclidine Screen Negative Urine Amphetamines Screen Negative Urine Benzodiazepines Screen Negative Urine Cocaine Screen Negative Urine Cannabinoids Screen Negative Toxicology Test 08/19/18 12:15 Urine Opiates Screen Negative Urine Barbiturates Screen Negative Ur Tricyclic Antidepressants Screen Negative Urine Phencyclidine Screen Negative Urine Amphetamines Screen Negative Urine Benzodiazepines Screen Negative Urine Cocaine Screen Negative Urine Cannabinoids Screen Negative Urinalysis Test 08/19/18 12:15 Urine Color Straw Urine Clarity Clear Urine pH 7.0 pH (4.8-9.5) Urine Specific [place] 1.004 Urine Protein Negative mg/dL (NEGATIVE) Urine Glucose (UA) Negative mg/dL (NEGATIVE) Urine Ketones Negative mg/dL (NEGATIVE) Urine Blood Negative (NEGATIVE) Urine Nitrite Negative (NEGATIVE) Urine Bilirubin Negative (NEGATIVE) Urine Urobilinogen Negative mg/dL (0.2-1.9) Urine Leukocyte Esterase Negative (NEGATIVE) Urine RBC 1 /HPF (0-2/HPF) Urine WBC 1 /HPF (0-5/HPF) Urine Squamous Epithelial Cells None /LPF (</=FEW) Urine Bacteria Negative /HPF (NONE-FEW) Urine Mucus None /HPF (NONE-FEW) Muscle Strength and Tone: WNL Gait and Station: Steady [facility] Medications Reviewed: Side Effects, Benefits of Medication, Risks Allergies Reviewed: Yes Mental Status Exam General Appearance: Casual; No Well Groomed, No Good Eye Contact, No Cooperative, No Polite, No Good Interaction; Unkept, Psychomotor Retardation; No Bizarre Mannerisms, No Tics Speech: Spontaneous, Normal Volume, Inappropriate Mood: Dysthmic/Depressed (appearing so, but denies any problems) Affect: Sad, Neutral, Withdrawn Thought Process: Goal Directed (I just want to go the fuck home); No Loose Associations, No Flight of Ideas Thought Content: No Suicidal Ideation (denies), No Homicidal Ideation, No Delusions, No Auditory Halllucinations, No Visual Hallucinations, No Thought Broadcasting, No Ideas of Reference, No Obsessions, No Compulsions Sensorium: Clear Cognition: Alert & Oriented-Person, Alert & Oriented-Place, Alert & Oriented- Time, [id number]-Qoyyxprlm (partially) Memory: Immediate, Recent, Remote Intelligence: Average Insight Judgment: Poor (seemingly little understanding of the detrimental effects of continued alcohol and drug use in his life. 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 hearing tomorrow. 2. continue to monitor wound. Problem Qualifiers (1) Alcohol withdrawal: Complication of substance-induced condition: uncomplicated Qualified Codes: F10.230 - Alcohol dependence with withdrawal, uncomplicated (2) Open wound of forearm, complicated: Encounter type: initial encounter Laterality: left Qualified Codes: S51.802A - Unspecified open wound of left forearm, initial encounter ARCELIA CAICEDO MD Aug 20, 2018 11:39
[2018-08-20 20:57] VITALS: BP 113/85
[2018-08-21 02:31] VITALS: BP 118/84
[2018-08-21] MEDS: THIAMINE HCL 100 MG TAB PO SCH (07:57)
[2018-08-21] MEDS: FOLIC ACID 1 MG TAB PO SCH (07:57)
[2018-08-21] MEDS: MULTIVITAMINS PO SCH (07:57)
[2018-08-21] MEDS ORDERED: MULT-1379 PO (08:46)
[2018-08-21] MEDS ORDERED: NIC10R INH (08:50)
[2018-08-21] MEDS ORDERED: NICOTROL CARTRIDGE PO (08:51)
[2018-08-21 12:20] VITALS: BP 116/70
--- NOTE | 2018-08-22 11:42 | SCHAAF DISCHARGE ---
DATE OF ADMISSION: August 17, 2018 DATE OF DISCHARGE: August 21, 2018 ATTENDING PHYSICIAN Gab Caicedo MD The patient was seen at approximately 08:30 hours on August 21, 2018 for note concerning this dictation. FINAL DIAGNOSES PER DSM-V 1. Alcohol induced mood disorder, resolved. 2. Stimulant induced mood disorder, Methamphetamine, resolved. 3. Alcohol use disorder, severe. 4. Stimulant use disorder, moderate. 5. 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 REASON FOR ADMISSION Please see emergency room note. Notable for a 28-year-old male, intoxicated with significant laceration to extensor muscle bundle on left forearm. Tendons did not appear to be damaged according to ER note. The patient was medically cleared, brought to [facility] under emergency detainment. Once on the unit this fairly well known patient who has had two admissions prior this year alone, once in September, and once in March, admitted to using heavy alcohol consumption. The patient reporting daily use of 18-24 beers a day with additional pints of Vodka. The patient once again showing very little evidence of this level of drinking on a consistent basis. The patient having limited withdrawal before in the past and no clinically relevant withdrawal during this admission. The patient also admitting to using methamphetamine, fighting with girlfriend, trying to "get a rise out of her" by inflicting a laceration on his forearm. The patient reported he did not know how deep he was cutting and was absolutely not intending to commit suicide. Due to patient frequent admission with ongoing substance use combine with with self-harm activities or verbalizations of such, a 10 day hearing was held to encourage patient to go to encourage patient to go to [facility]. This was supported. The patient again remaining relatively cooperative on the unit and denying any concerns and alcohol withdrawal was considered not to be clinically relevant. No parasuicidal behaviors were seen. PHYSICAL EXAMINATION Please see emergency room note. Vital signs at the time of admission: Temperature 97.7, pulse 91, respiratory rate 17, blood pressure 112/81 and pulse oximetry 92% on room air. Vital signs at the time of discharge: Temperature 98.6, pulse 73, respiratory rate 16, and pulse oximetry 94% on room air. LABORATORY DATA Urinalysis on 08/19/18 unremarkable. Toxicology screen on 08/19/18 was negative for substances of abuse. The patient admitting to using methamphetamine. CBC on 08/17/18 was notably unremarkable, MCV and MCH within normal limits, and platelet count within normal limits. Chemistry panel notably normal as well with no elevation in AST or ALT. TSH 0.53. Serum alcohol level of 238 upon admission. 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 The patient making fair eye contact. No bizarre mannerisms or tics. No psychomotor agitation or retardation. No periods of tearfulness. SPEECH: Reserved at times, but overall within normal limits. MOOD: Described as improved. AFFECT: Full and bright especially when talking with family members. THOUGHT PROCESSES: Fairly goal-directed. The patient certainly wanting to leave the hospital and patient agreeing to go to [facility] for further treatment. Logical, no loose associations or flight of ideas. THOUGHT CONTENT: Free of auditory or visual hallucinations, ideas of reference, thought broadcastings, delusions, obsessions or compulsions. The patient is adamantly denying suicidal or homicidal ideation. SENSORIUM: Clear. COGNITION: Alert and oriented to person, place, time and situation. MEMORY: Immediate, recent and remote was estimated intact. INTELLIGENCE: Average, based on interview and previous knowledge of this patient. INSIGHT AND JUDGMENT: Considered grossly intact in the absence of alcohol intoxication or substance intoxication. RESULTS OF TESTING Imaging: None. Laboratory data: See above. CONSULTATIONS The patient was followed by surgical services while on the unit for lack of extension at the wrist of left hand. The patient followed by Dr. Zamudio as well as Dr. Mathew who visited the patient as well and was accepting of patient for continued outpatient management upon discharge. Please see electronic record for notes. A splint was applied to aid with extension. TREATMENT Patient received medications, participated in individual and group therapy. HOSPITAL COURSE Initially, this fairly well known patient again uncooperative, denying any problems, notably alcohol withdrawal was not considered clinically relevant in this patient who admits to a very high consumption of alcohol on a daily basis and the patient's laboratory data did not support this level of drinking as well. The patient admitting to amphetamine use, fighting with girlfriend and engaging in self-harm in a state of intoxication. CONDITION OF PATIENT ON DISCHARGE Stable. Considered a minimal risk to himself or others in the absence of alcohol intoxication or illicit substance use. DISPOSITION The patient was discharged to home. It was encouraged that his mother whom he lives with would also abstain from alcohol use in the home, The patient's mother stated she had every intention to do so. Crisis line was given should symptoms return. The patient would follow up with [facility] and [facility] and remain under an outpatient commitment. He would follow up with Dr. Mathew at [facility] for further care of left arm injury. MEDICATIONS AT TIME OF DISCHARGE: 1. Multivitamin with minerals daily. 2. Nicotine replacement therapy which patient could continue over the counter. The patient would need further evaluation during outpatient treatment for the necessity of any medications to combat any underlying depression in the absence of alcohol or illicit substance use. The patient requiring no Diazepam on the unit for alcohol withdrawal. The patient was briefly given Folic acid and Vitamin B1. Wound care was ongoing throughout the patient's stay. No evidence of any localized infection regarding the wound existed. The risks, benefits and alternatives of the above discharge plan were discussed. Informed consent was given to proceed with the above discharge plan by this patient as well as patient's family members present at time of discharge. SITA
== END 2018-08-21 17:25 | disposition home or self-care (01) | DRG 897 ==
LOC: BHS 17:45
PROVIDERS: ADMIT Psychiatry & Neurology Psychiatry; ATTEND Psychiatry & Neurology Psychiatry
DX: F10.24 Alcohol dependence with alcohol-induced mood disorder (principal); S56.822A Laceration of other muscles, fascia and tendons at forearm level, left arm, initial encounter; R45.851 Suicidal ideations; F15.24 Other stimulant dependence with stimulant-induced mood disorder; F10.230 Alcohol dependence with withdrawal, uncomplicated; L40.9 Psoriasis, unspecified; Y90.8 Blood alcohol level of 240 mg/100 ml or more; X78.1XXA Intentional self-harm by knife, initial encounter; Z91.5 Personal history of self-harm; Z56.0 Unemployment, unspecified
CPT/HCPCS: 80305; 81001; 93005

== ENCOUNTER → 2018-08-17 | Outpatient (CLI) | payer SELFPAY ==
[~2018-08-17] MED LIST changes: +EPIN0.3P15 IM
== END ==
LOC: AMB 00:43
PROVIDERS: ATTEND Nurse Practitioner
DX: S51.812A Laceration without foreign body of left forearm, initial encounter (principal); R45.851 Suicidal ideations; R45.1 Restlessness and agitation; X78.1XXA Intentional self-harm by knife, initial encounter
CPT/HCPCS: A0425; A0429

== ENCOUNTER 2018-09-22 20:27 | Emergency (ER) | payer SELFPAY ==
[2018-09-22 20:28] VITALS: BP 133/94
--- NOTE | 2018-09-22 20:33 | ER Report ---
History and Physical Time Seen By MD: 20:28 HPI/ROS CHIEF COMPLAINT: Skilled Nursing clearance HISTORY OF PRESENT ILLNESS: 28-year-old male brought in by police for [facility] clearance. Patient appears grossly on-call intoxicated with slurred speech. Patient voices no complaints. There is a small abrasion to his left cheek below his left eye. Patient notes no visual changes. REVIEW OF SYSTEMS: Respiratory: No cough, no dyspnea. Cardiovascular: No chest pain, no palpitations. Gastrointestinal: No vomiting, no abdominal pain. Musculoskeletal: No back pain. Allergies: Coded Allergies: No Known Allergies (Verified Allergy, Mild, 09/04/15) Home Meds Reported Medications [Nicotrol Cartridge] No Conflict Check, 1 EA PO PRN PRN for NICOTINE REPLACEMENT 08/21/18 Nicotine (NICOTROL) 10 Mg/Inh Ctr, 10 MG INH Q2H PRN for NICOTINE REPLACEMENT 08/21/18 Multivits,Th W-Fe,Other Min (THERA-M) 1 Each Tablet, 1 EACH PO QDAY 08/21/18 Reviewed Nurses Notes: Yes Old Medical Records Reviewed: Yes Hx Smoking: Yes Smoking Status: Current: Every Day Smoker, Heavy Tobacco Smoker Exposure to Second Hand Smoke?: Yes Hx Substance Use Disorder: Yes (marijuania AND METH) Hx Alcohol Use: Yes Constitutional Vital Sign - Last 24 Hours 09/22/18 20:28 Temp 97.9 Pulse 98 Resp 16 B/P (MAP) 133/94 Pulse Ox 93 O2 Delivery Room Air Physical Exam General Appearance: The patient is alert, has no immediate need for airway protection and no current signs of toxicity. Vital signs stable, afebrile, pulse ox normal HEENT: Pupils equal and round no injection. TMs normal, oropharynx no redness or exudate, no dental trauma Respiratory: Chest is non tender, lungs are clear to auscultation. No chest wall tenderness Cardiac: regular rate and rhythm Gastrointestinal: Abdomen is soft and non tender, no masses, bowel sounds normal. Musculoskeletal: Neck: Neck is supple and non tender. Extremities have full range of motion and are non tender. Skin: No rashes or lesions. DIFFERENTIAL DIAGNOSIS: After history and physical exam differential diagnosis was considered for [place] [facility] clearance, polysubstance abuse, alcohol intoxication Medical Decision Making ED Course/Re-evaluation ED Course Patient was admitted to an examination room. H&P was done. The differential diagnoses was considered. On clinical examination. Patient has no findings. His vital signs are stable. He is medical cleared for [place] admission. Decision to Disposition Date: Sep 22, 2018 Decision to Disposition Time: 20:32 Depart Departure Latest Vital Signs Vital Signs Date Time Temp Pulse Resp B/P (MAP) Pulse Ox O2 Delivery O2 Flow Rate FiO2 09/22/18 20:28 97.9 98 16 133/94 93 Room Air Impression: Primary Impression: Medical clearance for incarceration Additional Impressions: Alcohol intoxication Facial abrasion Condition: Improved Disposition: [facility] TO [facility] Patient Instructions: Alcohol Intoxication (ED) Additional Instructions: Medical cleared for [place] admission Problem Qualifiers Additional Impressions: Alcohol intoxication Complication of substance-induced condition: uncomplicated Qualified Codes: F10.920 - Alcohol use, unspecified with intoxication, uncomplicated Facial abrasion Encounter type: initial encounter Qualified Codes: S00.81XA - Abrasion of other part of head, initial encounter ELICEO RAMIREZ DO Sep 22, 2018 20:33
== END 2018-09-22 20:41 ==
LOC: ER 20:37
DX: F10.920 Alcohol use, unspecified with intoxication, uncomplicated (principal); S00.81XA Abrasion of other part of head, initial encounter
CPT/HCPCS: 99281